=== PATIENT | male | born 1950 | race Caucasian/White ===

== ENCOUNTER → 2017-08-06 | Day surgery (SDC) | payer OTHER ==
[2017-07-24 10:55] VITALS: Ht 172.7 cm; Wt 67.3 kg
[~2017-08-06] VITALS: Ht 172.7 cm; Wt 67.3 kg
[~2017-08-06] MED LIST: ATOR-24 PO; HYG/25 PO; LIDOCAINE HCL 2% 2 ML VIAL (20MG/ML) ONE; PROPOFOL IV EMULSION 10 MG/ML 20 ML VIAL IV ONE; TIOT1AER2 INH; VNTHFA/IN INH
--- NOTE | 2017-08-06 14:55 | Endo History and Physical ---
History & Physical Date of Service: Aug 06, 2017. Chief Complaint: Tubular Adenoma Referring Physician: Essie History of Present Illness For colonoscopy Past Surgical History Hx Cardiac Surgery: No Hx Internal Defibrillator: No Hx Pacemaker: No Hx Abdominal Surgery: No Hx of Implantable Prosthesis: No Hx Post-Op Nausea and Vomiting: No Hx Cancer Surgery: No Hx Thoracic Surgery: No Hx Orthopedic: No Hx Urinary Tract Surgery: No Family History None Social History Smoking Status: Current Every Day Smoker Hx Substance Use: No Hx Alcohol Use: No Allergies Coded Allergies: No Known Allergies (Unverified , 07/24/17) Current Medications Reported Home Medications Medications Dose Route/Sig Max Daily Dose Days Date Category Spiriva Respimat (Tiotropium [place]) 1.25 Mcg/Act Aer 2 Puff INH QAM 07/24/17 Reported Ventolin Hfa (Albuterol) 200 Puffs/31973 Mcg Aers 2-4 Puffs INH Q6H PRN 07/24/17 Reported Lipitor (Atorvastatin Calcium) 40 Mg Tab 40 Mg PO QAM 07/24/17 Reported Hygroton (Chlorthalidone) 25 Mg Tab 25 Mg PO QAM 07/24/17 Reported Vital Signs Weight (Kilograms): 67.27 Height (Feet): 5 Height (Inches): 8 Date Time Temp Pulse Resp B/P (MAP) Pulse Ox O2 Delivery O2 Flow Rate FiO2 08/06/17 14:22 36.8 88 20 123/84 (97) 95 Room Air Physical Exam General Appearance: + thin Respiratory/Chest: Auscultation: deminished air movement Cardiovascular: Heart Auscultation: RRR Abdomen: Inspection & Palpation: soft Assessment and Plan Hx polyps for colonoscopy
--- NOTE | 2017-08-06 15:25 | Discharge Instructions ---
Endoscopy Patient Instructions Date / Procedure(s) Performed Aug 06, 2017. Colonoscopy Allergy Information Coded Allergies: No Known Allergies (Unverified , 07/24/17) Discharge Date / Findings Aug 06, 2017. Diverticulosis, hemorrhoids, polyp Medication Instructions Restart Stopped Medication(s): resume meds Reported Home Medications Medications Dose Route/Sig Max Daily Dose Days Date Category Spiriva Respimat (Tiotropium [place]) 1.25 Mcg/Act Aer 2 Puff INH QAM 07/24/17 Reported Ventolin Hfa (Albuterol) 200 Puffs/60615 Mcg Aers 2-4 Puffs INH Q6H PRN 07/24/17 Reported Lipitor (Atorvastatin Calcium) 40 Mg Tab 40 Mg PO QAM 07/24/17 Reported Hygro[place] (Chlorthalidone) 25 Mg Tab 25 Mg PO QAM 07/24/17 Reported Provider Instructions Activity Restrictions - No exercising or heavy lifting for 24 hours. - Do not drink alcohol the day of the procedure. - Do not drive a car or operate machinery until the day after the procedure. - Do not make any important decisions or sign important papers in 24 hours after the procedure. Following Day: - Return to full activity which may include returning to work/school. Diet Start your diet with liquids and light foods (jello, soup, juice, toast). Then eat your usual diet if not nauseated. Treatment For Common After Affects For mild abdominal pain, bloating, or excessive gas: - Rest - Eat lightly - Lie on right side Follow-Up Information Follow-up with Essie as scheduled Anesthesia Information What You Should Know You have had a procedure that required some medicine to reduce anxiety and discomfort. This treatment is called moderate sedation. After receiving the treatment, you may be sleepy, but you will be able to breathe on your own. The effects of the treatment may last for several hours. Follow these instructions along with Activity/Diet recommendations noted above: * Do NOT do anything where dizziness or clumsiness would be dangerous. * Rest quietly at home today, then you can be up and about tomorrow. * Have a responsible person stay with you the rest of today. * You may have had an I.V. today. If so, you may take the dressing off later today. Recommendations Call your doctor if: * Trouble breathing * Continuous vomiting for more than 24 hours * Temperature above 101 degrees * Severe abdominal pain or bloating * Pain not relieved by pain medicine ordered * There is increased drainage or redness from any incision * A large amount of rectal bleeding greater than 2-3 tablespoons. (If you had a polyp/s removed or have hemorrhoids, a small amount of blood - from the rectum is to be expected.) * You have any unanswered questions or concerns. IN THE EVENT OF A SERIOUS EMERGENCY, GO TO THE NEAREST EMERGENCY ROOM Your discharge instructions were prepared by provider Aleksandr Warren. Patient Instructions Signature Page Gregg Black Patient (or Guardian) Signature/Date: I have read and understand the instructions given to me by my caregivers. Caregiver/RN/Doctor Signature/Date: The above-named patient and/or guardian has received patient instructions on this date. + Original Patient Signature Page (only) stays with chart. Please make copy for patient.
--- NOTE | 2017-08-06 15:30 | GI REPORT ---
Procedure Date: 08/06/2017 3:09 PM Procedure: Colonoscopy Indications: Personal history of colonic polyps Medicines: Propofol total dose 120 mg IV, Lidocaine 40 mg IV Complications: No immediate complications. Estimated Blood Loss: Estimated blood loss was minimal. Procedure: Pre-Anesthesia Assessment: - Prior to the procedure, a History and Physical was performed, and patient medications, allergies and sensitivities were reviewed. The patient's tolerance of previous anesthesia was reviewed. - The risks and benefits of the procedure and the sedation options and risks were discussed with the patient. All questions were answered and informed consent was obtained. After I obtained informed consent, the scope was passed under direct vision. Throughout the procedure, the patient's blood pressure, pulse, and oxygen saturations were monitored continuously. The On-site loaner was introduced through the anus and advanced to the cecum, identified by appendiceal orifice and ileocecal valve. The colonoscopy was performed without difficulty. The patient tolerated the procedure well. The quality of the bowel preparation was excellent. Findings: Non-bleeding internal hemorrhoids were found during endoscopy. The hemorrhoids were mild. A few diverticula were found in the sigmoid colon. A 6 mm polyp was found in the sigmoid colon. The polyp was semi-pedunculated. The polyp was removed with a cold snare. Resection and retrieval were complete. Estimated blood loss was minimal. Impression: - Non-bleeding internal hemorrhoids. - Diverticulosis in the sigmoid colon. - One 6 mm polyp in the sigmoid colon, removed with a cold snare. Resected and retrieved. Recommendation: - Discharge patient to home (ambulatory). - Continue present medications. - Await pathology results. - Return to primary care physician PRN. Aleksandr Warren M.D. Aleksandr Warren MD 08/06/2017 3:30:18 PM This report has been signed electronically. Note Initiated On: 08/06/2017 3:09 PM I attest to the content of the Intraoperative Record and orders documented therein, exceptions below
--- NOTE | 2017-08-06 15:54 | Anesthesiology Progress Note ---
Anesthesia Post Op Note Date & Time Aug 06, 2017 at 15:53 Vital Signs Pain Intensity: 0 Vital Signs Past 12 Hours Date Time Temp Pulse Resp B/P (MAP) Pulse Ox O2 Delivery O2 Flow Rate FiO2 08/06/17 15:44 79 16 122/82 (95) 92 Room Air 08/06/17 15:29 84 14 102/66 (78) 94 Room Air 08/06/17 14:22 36.8 88 20 123/84 (97) 95 Room Air Notes Mental Status: alert / awake / arousable, participated in evaluation Pt Amnestic to Procedure: Yes Nausea / Vomiting: adequately controlled Pain: adequately controlled Airway Patency, RR, SpO2: stable & adequate BP & HR: stable & adequate Hydration State: stable & adequate Anesthetic Complications: no major complications apparent
[2017-08-06 15:59] VITALS: BP 123/89; PULSE 72; O2SAT 94
== END | disposition home or self-care (01) ==
LOC: C.GI 13:37
PROVIDERS: ATTEND Internal Medicine Gastroenterology
DX: Z12.11 Encounter for screening for malignant neoplasm of colon (principal); D12.5 Benign neoplasm of sigmoid colon; Z86.010 Personal history of colon polyps; K57.30 Diverticulosis of large intestine without perforation or abscess without bleeding; K64.8 Other hemorrhoids; F17.200 Nicotine dependence, unspecified, uncomplicated; J44.9 Chronic obstructive pulmonary disease, unspecified; I10 Essential (primary) hypertension; E78.5 Hyperlipidemia, unspecified

== ENCOUNTER 2020-11-24 07:07 | Inpatient (IN) ==
[2020-11-24] MEDS ORDERED: ALBUT/IPRATROP 3MG/0.5MG NEB 3 ML VIAL INH STA (07:15)
[2020-11-24] MEDS ORDERED: methylPREDNISolone 125 MG/2 ML VIAL IV STA (07:15)
--- NOTE | 2020-11-24 07:18 | Emergency Department Note ---
Impression & Plan Acute respiratory failure with hypoxia, COPD (chronic obstructive pulmonary disease) with emphysema ED Provider Note NAME: BRUCE PALM AGE: 70 SEX: M : 1950 ARRIVES VIA: Ambulance INFORMANT: Patient, EMS ED PROVIDER(S): Js Dunn MD CHIEF COMPLAINT: Shortness of breath HPI: This 70-year-old male who presents emergency department complaining of shortness of breath. The patient reports he has been quitting smoking and quit approxi-1 week ago. The patient reports he has been short of breath anytime he exerts himself. He called EMS today when he could not catch his breath. EMS reports they placed the patient on 2 L of oxygen and gave him a breathing treatment. He reports rest makes the shortness of breath better ROS: See above HPI for pertinent positives & negatives. A total of 10 systems reviewed and were otherwise negative. PAST MEDICAL HISTORY: See Below PAST SURGICAL HISTORY: See Below FAMILY HISTORY: See Below SOCIAL HISTORY: See Below HOME MEDICATIONS: See Below ALLERGIES: See Below VITALS: See Below PHYSICAL EXAMINATION: VITAL SIGNS - Vital signs and nursing notes were reviewed. GENERAL - 70-year-old male appearing stated age who is in no acute distress. Communicates well with provider and answers questions appropriately. SKIN - Without rashes. HEAD - NC/AT. EYES - PERRL with EOMI bilaterally. Sclera anicteric. Palpebral conjunctiva pink and moist with no injection noted. EARS - No deformities of external structures noted on gross examination bilaterally. NOSE - Midline and without cyanosis. No epistaxis or purulent drainage noted. Septum midline without deviation or septal hematoma noted. MOUTH/OROPHARYNX - Without perioral cyanosis. Buccal mucosa pink and moist and without leukoplakia. Tongue midline with equal elevation of palate bilaterally. No tonsillar hypertrophy, erythema, or exudates noted. NECK - Neck with FROM. Supple to palpation. No nuchal rigidity. LUNGS - Chest wall symmetric without accessory muscle use, intercostals retractions, or central cyanosis. Normal vesicular breath sounds CTA B/L. No whe ezes, rales, or rhonchi appreciated. CARDIAC - RRR with S1/S2. No murmur, rubs, or gallops appreciated. ABDOMEN - Abdominal contour BS normoactive all four quadrants. No tenderness, palpable masses, hepatosplenomegaly, or ascites noted. EXTREMITIES - No clubbing or peripheral cyanosis. No pretibial edema present. +3/5 radial, posterior tibial, and dorsalis pedis pulses palpated throughout. +5/5 strength noted in UE/LE bilaterally. NEUROLOGIC - Cranial nerves II through XII grossly intact. Sensory intact to light touch throughout. Patellar reflexes +2/4. PSYCH - A&Ox3 and cooperates fully with examiner. Pt is very pleasant and interacts well with examiner. MEDICAL DECISION MAKING: Patient was seen and evaluated as above in room. Review was performed of nursing notes and vital signs. I did review pertinent previous visits and patient history. After obtaining a thorough history and physical examination the above work up was performed. This 70-year-old male with a history of COPD presents to the emergency department with hypoxia. Patient was placed on oxygen by EMS. Here in the emergency department patient was started on Solu-Medrol and given breathing treatments. Because the patient continues to require oxygen I did discuss the case with the hospitalist service who did agree to admit the patient. I will note that the patient does not have an elevation in his white blood cell count has a negative Covid test and a negative troponin. An order was placed for continuous cardiac monitoring. The monitor shows a rate of 63 with Normal inus rhythm. The patient was evaluated during a period of high volume and high acuity during the global COVID-19 pandemic, and that diagnosis was suspected/considered upon their initial presentation. Their evaluation, treatment and testing was consistent with current guidelines for patients who present with complaints or s ymptoms that may be related to COVID-19. Patient was seen while provider was wearing PPE. Triage Nursing notes reviewed. Prior medical records reviewed Vital Signs: reviewed and remarkable for no significant abnormalities Differential diagnosis: Reactive airway disease, pneumonia, pneumothorax, COPD, CHF, infections, cardiac ischemia, pulmonary embolism, musculoskeletal, gastrointestinal, as well as other pathologies. ER treatment provided: See below Diagnostics interpreted by me: ECG: Sinus tachycardia with premature atrial complex right atrial enlargement QTC is 491 ventricular rate is [address] elevation or depression when compared with EKG of 02/16/2012 premature atrial complexes are now present Laboratory studies: As stated above and show below. Imaging studies: See below Consultation(s): Internal Medicine Past Med/Surg History Medical History COPD (chronic obstructive pulmonary disease) with emphysema HTN (hypertension) Hypercholesterolemia Pneumonia Surgical History History of foot surgery Social History Smoking Status: Current every day smoker Tobacco Type: Cigarettes Cigarettes Per Day: 1/2 pack; Do You Dip or Chew Tobacco: No; Hx Alcohol Use: No Hx Substance Use: No Preferred Language: Ecuadorean Communication Ability: Effective Mine Inspector Required: No Beliefs That Will Affect Care: None Current Living Situation: Alone Other Information That Helps Us Care for You: No Feels Safe at Home: Yes Safety Concerns: Feels Safe At This Time Assistive Devices: None Allergies Allergies Allergy/AdvReac Type Severity Reaction Status Date / Time No Known Allergies Allergy Unverified 11/24/20 07:42 Home Meds Home Medications Medication Instructions Recorded Confirmed albuterol sulfate 2 puff INHALATION Q4H PRN 11/24/20 11/24/20 atorvastatin 40 mg PO QAM 11/24/20 11/24/20 chlorthalidone 25 mg PO QAM 11/24/20 11/24/20 tiotropium bromide [Spiriva 1 inh INHALATION DAILY 11/24/20 11/24/20 Respimat] Results & Data (ED) Vital Signs Vital Signs - 24 hr 11/24/20 07:07 11/24/20 07:17 11/24/20 07:19 Temperature 37 C Temperature Source Oral Pulse Rate 122 H 109 H 110 H Pulse Rate [Apical] Pulse Rate from SpO2 Sensor 109 H 107 H Pulse Rhythm Regular Pulse Strength Normal Respiratory Rate 24 29 H 19 Respiratory Effort / Characteristics Spontaneous Short of Breath Respiratory Depth Shallow Respiratory Pattern Rapid/Shallow Blood Pressure 164/101 H 164/101 H Blood Pressure Mean 122 122 Blood Pressure Position Sitting Pulse Oximetry 97 98 99 Oxygen Delivery Method Nasal Cannula Oxygen Flow Rate 2 Sepsis Recent Fever Within 48 Hours No Sepsis New/Unexplained Change in Mental Status No Sepsis Action Taken by Nursing Physician Notified Oxygen Flow Rate - Titration 2 Pulse Oximetry Post Tiitration 98 11/24/20 07:30 11/24/20 07:32 11/24/20 07:45 Temperature Temperature Source Pulse Rate 110 H 106 H 106 H Pulse Rate [Apical] Pulse Rate from SpO2 Sensor 108 H 107 H Pulse Rhythm Regular Pulse Strength Respiratory Rate 20 31 H 33 H Respiratory Effort / Characteristics Respiratory Depth Respiratory Pattern Blood Pressure Blood Pressure Mean Blood Pressure Position Pulse Oximetry 99 98 96 Oxygen Delivery Method Nasal Cannula Oxygen Flow Rate 2 Sepsis Recent Fever Within 48 Hours Sepsis New/Unexplained Change in Mental Status Sepsis Action Taken by Nursing Oxygen Flow Rate - Titration Pulse Oximetry Post Tiitration 11/24/20 07:46 11/24/20 08:00 11/24/20 08:07 Temperature Temperature Source Pulse Rate 107 H 113 H Pulse Rate [Apical] 108 H Pulse Rate from SpO2 Sensor 105 H 103 H Pulse Rhythm Pulse Strength Respiratory Rate 23 14 20 Respiratory Effort / Characteristics Spontaneous Short of Breath Respiratory Depth Respiratory Pattern Blood Pressure 148/80 H 128/85 Blood Pressure Mean 102 99 Blood Pressure Position Pulse Oximetry 98 99 96 Oxygen Delivery Method Nasal Cannula Oxygen Flow Rate 2 Sepsis Recent Fever Within 48 Hours Sepsis New/Unexplained Change in Mental Status Sepsis Action Taken by Nursing Oxygen Flow Rate - Titration Pulse Oximetry Post Tiitration 11/24/20 08:15 11/24/20 08:30 11/24/20 08:31 Temperature Temperature Source Pulse Rate 104 H 104 H 102 H Pulse Rate [Apical] Pulse Rate from SpO2 Sensor 106 H 100 H 103 H Pulse Rhythm Pulse Strength Respiratory Rate 24 15 22 Respiratory Effort / Characteristics Spontaneous Labored Retracting Short of Breath Tripoding Respiratory Depth Respiratory Pattern Blood Pressure 114/75 136/85 Blood Pressure Mean 88 102 Blood Pressure Position Pulse Oximetry 97 99 99 Oxygen Delivery Method Nasal Cannula Oxygen Flow Rate 2 Sepsis Recent Fever Within 48 Hours Sepsis New/Unexplained Change in Mental Status Sepsis Action Taken by Nursing Oxygen Flow Rate - Titration Pulse Oximetry Post Tiitration 11/24/20 08:45 11/24/20 08:46 11/24/20 09:00 Temperature Temperature Source Pulse Rate 105 H 103 H 101 H Pulse Rate [Apical] Pulse Rate from SpO2 Sensor 89 93 H 94 H Pulse Rhythm Pulse Strength Respiratory Rate 35 H 29 H 24 Respiratory Effort / Characteristics Respiratory Depth Respiratory Pattern Blood Pressure 120/75 110/74 Blood Pressure Mean 90 86 Blood Pressure Position Pulse Oximetry 93 99 92 Oxygen Delivery Method Oxygen Flow Rate Sepsis Recent Fever Within 48 Hours Sepsis New/Unexplained Change in Mental Status Sepsis Action Taken by Nursing Oxygen Flow Rate - Titration Pulse Oximetry Post Tiitration 11/24/20 09:14 11/24/20 09:15 Temperature Temperature Source Pulse Rate 104 H Pulse Rate [Apical] 106 H Pulse Rate from SpO2 Sensor 85 Pulse Rhythm Pulse Strength Respiratory Rate 22 21 Respiratory Effort / Characteristics Spontaneous Short of Breath Respiratory Depth Respiratory Pattern Blood Pressure 132/80 Blood Pressure Mean 97 Blood Pressure Position Pulse Oximetry 96 89 L Oxygen Delivery Method Nasal Cannula Oxygen Flow Rate 2 Sepsis Recent Fever Within 48 Hours Sepsis New/Unexplained Change in Mental Status Sepsis Action Taken by Nursing Oxygen Flow Rate - Titration Pulse Oximetry Post Tiitration Home Medications Current Medication List: was personally reviewed by me Laboratory Data Attestation: I reviewed the patient's lab results. Result diagrams: 11/27/20 05:31 11/27/20 05:31 Lab Results 11/24/20 11/24/20 11/24/20 Range/Units 07:31 07:31 07:32 WBC 18.62 H (4.8-10.8) K/uL RBC 4.78 (4.7-6.1) M/uL Hgb 15.1 (14.0-18.0) g/dL Hct 42.7 (42-52) % MCV 89.3 (80-100) fL MCH 31.6 (25-34) pg MCHC 35.4 (32-36) g/dL RDW Std Deviation 43.0 (36.4-46.3) fL RDW Coeff of Latrice 13.1 (11.5-14.5) % Plt Count 333 (130-400) K/uL MPV 10.1 (7.4-10.4) fL Immature Gran % (Auto) 0.4 % Neut % (Auto) 87.9 % Lymph % (Auto) 3.9 % Boyd % (Auto) 7.7 % Eos % (Auto) 0.0 % Baso % (Auto) 0.1 % Neut # (Auto) 16.38 H (1.4-6.5) K/uL Lymph # (Auto) 0.72 L (1.2-3.4) K/uL Boyd # (Auto) 1.43 H (0.11-0.59) K/uL Eos # (Auto) 0.00 (0-0.5) K/uL Baso # (Auto) 0.01 (0-0.2) K/uL Immature Gran # (Auto) 0.08 H (0.00-0.02) K/uL Absolute Nucleated RBC 0.00 (0-0) K/uL Nucleated RBC % (auto) 0.0 % PT 10.6 (9.0-12.0) Seconds INR 1.0 (0.9-1.1) APTT 23.6 (21.0-31.0) Seconds PTT Ratio 0.9 Sodium 132 L (136-145) mmol/L Potassium 3.4 L (3.5-5.1) mmol/L Chloride 89 L (98-107) mmol/L Carbon Dioxide 33 H (21-32) mmol/L Anion Gap 10.0 (3-11) BUN 26 H (7-18) mg/dl Creatinine 1.10 (0.6-1.4) mg/dl Est Cr Clr Drug Dosing Not Reportable Est GFR ( Amer) 79.5 ml/min Est GFR (Non-Af Amer) 68.6 ml/min BUN/Creatinine Ratio 23.5 H (10-20) Glucose 105 H (70-99) mg/dl Lactate (0.4-2.0) mmol/L Calcium 10.2 H (8.5-10.1) mg/dl Magnesium (1.8-2.4) mg/dl Total Bilirubin 0.7 (0.2-1) mg/dl AST 62 H (15-37) U/L ALT 37 (12-78) U/L Alkaline Phosphatase 91 (45-117) U/L Troponin I (0-0.045) ng/ml NT-Pro-B Natriuret Pep (0-900) pg/ml Total Protein 8.0 (6.4-8.2) gm/dl Albumin 3.6 (3.4-5.0) gm/dl Globulin 4.4 H (2.5-4.0) gm/dl Albumin/Globulin Ratio 0.8 L (0.9-2) COVID-19 Eval Order SARS-CoV-2 (PCR) (Negative) 11/24/20 11/24/20 11/24/20 Range/Units 07:32 08:02 08:02 WBC (4.8-10.8) K/uL RBC (4.7-6.1) M/uL Hgb (14.0-18.0) g/dL Hct (42-52) % MCV (80-100) fL MCH (25-34) pg MCHC (32-36) g/dL RDW Std Deviation (36.4-46.3) fL RDW Coeff of Latrice (11.5-14.5) % Plt Count (130-400) K/uL MPV (7.4-10.4) fL Immature Gran % (Auto) % Neut % (Auto) % Lymph % (Auto) % Boyd % (Auto) % Eos % (Auto) % Baso % (Auto) % Neut # (Auto) (1.4-6.5) K/uL Lymph # (Auto) (1.2-3.4) K/uL Boyd # (Auto) (0.11-0.59) K/uL Eos # (Auto) (0-0.5) K/uL Baso # (Auto) (0-0.2) K/uL Immature Gran # (Auto) (0.00-0.02) K/uL Absolute Nucleated RBC (0-0) K/uL Nucleated RBC % (auto) % PT (9.0-12.0) Seconds INR (0.9-1.1) APTT (21.0-31.0) Seconds PTT Ratio Sodium (136-145) mmol/L Potassium (3.5-5.1) mmol/L Chloride (98-107) mmol/L Carbon Dioxide (21-32) mmol/L Anion Gap (3-11) BUN (7-18) mg/dl Creatinine (0.6-1.4) mg/dl Est Cr Clr Drug Dosing Est GFR ( Amer) ml/min Est GFR (Non-Af Amer) ml/min BUN/Creatinine Ratio (10-20) Glucose (70-99) mg/dl Lactate (0.4-2.0) mmol/L Calcium (8.5-10.1) mg/dl Magnesium 1.7 L (1.8-2.4) mg/dl Total Bilirubin (0.2-1) mg/dl AST (15-37) U/L ALT (12-78) U/L Alkaline Phosphatase (45-117) U/L Troponin I < 0.015 (0-0.045) ng/ml NT-Pro-B Natriuret Pep 742 (0-900) pg/ml Total Protein (6.4-8.2) gm/dl Albumin (3.4-5.0) gm/dl Globulin (2.5-4.0) gm/dl Albumin/Globulin Ratio (0.9-2) COVID-19 Eval Order Covid19 at [facility] SARS-CoV-2 (PCR) NEGATIVE (Negative) 11/24/20 Range/Units 08:40 WBC (4.8-10.8) K/uL RBC (4.7-6.1) M/uL Hgb (14.0-18.0) g/dL Hct (42-52) % MCV (80-100) fL MCH (25-34) pg MCHC (32-36) g/dL RDW Std Deviation (36.4-46.3) fL RDW Coeff of Latrice (11.5-14.5) % Plt Count (130-400) K/uL MPV (7.4-10.4) fL Immature Gran % (Auto) % Neut % (Auto) % Lymph % (Auto) % Boyd % (Auto) % Eos % (Auto) % Baso % (Auto) % Neut # (Auto) (1.4-6.5) K/uL Lymph # (Auto) (1.2-3.4) K/uL Boyd # (Auto) (0.11-0.59) K/uL Eos # (Auto) (0-0.5) K/uL Baso # (Auto) (0-0.2) K/uL Immature Gran # (Auto) (0.00-0.02) K/uL Absolute Nucleated RBC (0-0) K/uL Nucleated RBC % (auto) % PT (9.0-12.0) Seconds INR (0.9-1.1) APTT (21.0-31.0) Seconds PTT Ratio Sodium (136-145) mmol/L Potassium (3.5-5.1) mmol/L Chloride (98-107) mmol/L Carbon Dioxide (21-32) mmol/L Anion Gap (3-11) BUN (7-18) mg/dl Creatinine (0.6-1.4) mg/dl Est Cr Clr Drug Dosing Est GFR ( Amer) ml/min Est GFR (Non-Af Amer) ml/min BUN/Creatinine Ratio (10-20) Glucose (70-99) mg/dl Lactate 2.1 H* (0.4-2.0) mmol/L Calcium (8.5-10.1) mg/dl Magnesium (1.8-2.4) mg/dl Total Bilirubin (0.2-1) mg/dl AST (15-37) U/L ALT (12-78) U/L Alkaline Phosphatase (45-117) U/L Troponin I (0-0.045) ng/ml NT-Pro-B Natriuret Pep (0-900) pg/ml Total Protein (6.4-8.2) gm/dl Albumin (3.4-5.0) gm/dl Globulin (2.5-4.0) gm/dl Albumin/Globulin Ratio (0.9-2) COVID-19 Eval Order SARS-CoV-2 (PCR) (Negative) Administered Medications Al Hydrox/Mg Hydrox/Simethicone (Aluminum/Magnesium Susp 30 Ml Udc) 15 ml PO Q4H PRN PRN Reason: Dyspepsia Stop: 12/24/20 11:40 Last Admin: 11/25/20 03:39 Dose: 15 ml Documented by: [id number] Albuterol (Albut/Ipratrop 3mg/0.5mg Neb 3 Ml Vial) 3 ml NEB Q4R YESY Stop: 12/24/20 11:40 Last Admin: 11/27/20 11:13 Dose: 3 ml Documented by: [id number] Admin: 11/27/20 07:39 Dose: 3 ml Documented by: [id number] Admin: 11/27/20 03:43 Dose: Not Given Documented by: [id number] Admin: 11/26/20 22:34 Dose: Not Given Documented by: [id number] Admin: 11/26/20 18:55 Dose: 3 ml Documented by: [id number] Admin: 11/26/20 15:04 Dose: 3 ml Documented by: [id number] Admin: 11/26/20 11:14 Dose: 3 ml Documented by: [id number] Admin: 11/26/20 07:13 Dose: 3 ml Documented by: [id number] Admin: 11/26/20 03:08 Dose: 3 ml Documented by: [id number] Admin: 11/26/20 02:30 Dose: Not Given Documented by: [id number] Admin: 11/25/20 23:04 Dose: 3 ml Documented by: [id number] Admin: 11/25/20 18:45 Dose: Not Given Documented by: [id number] Admin: 11/25/20 15:42 Dose: 3 ml Documented by: [id number] Admin: 11/25/20 11:22 Dose: 3 ml Documented by: [id number] Admin: 11/25/20 07:41 Dose: 3 ml Documented by: [id number] Admin: 11/25/20 03:14 Dose: 3 ml Documented by: [id number] Admin: 11/24/20 22:56 Dose: 3 ml Documented by: [id number] Admin: 11/24/20 19:32 Dose: 3 ml Documented by: [id number] Admin: 11/24/20 15:33 Dose: Not Given Documented by: [id number] Admin: 11/24/20 13:04 Dose: 3 ml Documented by: [id number] Atorvastatin Calcium (Atorvastatin 40 Mg Tab) 40 mg PO [facility] Stop: 12/24/20 11:40 Last Admin: 11/27/20 08:43 Dose: 40 mg Documented by: [id number] Admin: 11/26/20 08:30 Dose: 40 mg Documented by: [id number] Admin: 11/25/20 09:02 Dose: 40 mg Documented by: [id number] Admin: 11/24/20 13:30 Dose: 40 mg Documented by: [id number] Azithromycin (Azithromycin 250 Mg Tab) 250 mg PO [facility] Stop: 11/29/20 08:59 Last Admin: 11/27/20 08:43 Dose: 250 mg Documented by: [id number] Admin: 11/26/20 08:30 Dose: 250 mg Documented by: [id number] Admin: 11/25/20 09:02 Dose: 250 mg Documented by: [id number] Calcium Carbonate (Calcium Carbonate 500 Mg Chewable Tab) 500 mg PO QID PRN PRN Reason: Indigestion Stop: 12/24/20 15:36 Last Admin: 11/25/20 18:13 Dose: 500 mg Documented by: [id number] Admin: 11/24/20 15:49 Dose: 500 mg Documented by: [id number] Chlorthalidone (Chlorthalidone 25 Mg Tab) 25 mg PO [facility] Stop: 12/24/20 11:40 Last Admin: 11/27/20 08:43 Dose: 25 mg Documented by: [id number] Admin: 11/26/20 08:31 Dose: Not Given Documented by: [id number] Admin: 11/25/20 10:45 Dose: 25 mg Documented by: [id number] Admin: 11/24/20 13:30 Dose: 25 mg Documented by: [id number] Fluticasone/Vilanterol (Fluticasone/Vilanterol 100/25mcg 14 Puffs/Inhaler) 1 puffs INH DAILY YESY Stop: 12/25/20 08:59 Last Admin: 11/27/20 08:42 Dose: 1 puffs Documented by: [id number] Admin: 11/26/20 08:32 Dose: 1 puffs Documented by: [id number] Admin: 11/25/20 09:02 Dose: 1 puffs Documented by: [id number] Guaifenesin (Guaifenesin 600 Mg Tabcr) 600 mg PO Q12 YESY Stop: 12/24/20 20:59 Last Admin: 11/27/20 08:43 Dose: 600 mg Documented by: [id number] Admin: 11/26/20 20:45 Dose: 600 mg Documented by: [id number] Admin: 11/26/20 08:32 Dose: 600 mg Documented by: [id number] Admin: 11/25/20 20:44 Dose: 600 mg Documented by: [id number] Admin: 11/25/20 09:01 Dose: 600 mg Documented by: [id number] Admin: 11/24/20 21:07 Dose: 600 mg Documented by: [id number] Heparin Sodium (Porcine) (Heparin Sod 5,000 Unit/0.5 Ml Vial) 5,000 units SQ Q12 YESY Stop: 12/24/20 20:59 Last Admin: 11/27/20 08:43 Dose: 5,000 units Documented by: [id number] Admin: 11/26/20 20:45 Dose: 5,000 units Documented by: [id number] Admin: 11/26/20 08:32 Dose: 5,000 units Documented by: [id number] Admin: 11/25/20 20:44 Dose: 5,000 units Documented by: [id number] Admin: 11/25/20 09:02 Dose: 5,000 units Documented by: [id number] Admin: 11/24/20 20:36 Dose: 5,000 units Documented by: [id number] Magnesium Hydroxide (Magnesium Hydroxide Susp 30 Ml Udc) 30 ml PO Q12H PRN PRN Reason: Constipation Stop: 12/24/20 11:40 Last Admin: 11/25/20 06:11 Dose: 30 ml Documented by: [id number] Umeclidinium Ceres (Umeclidinium Ceres 62.5mcg/Blister 7 Puffs/Inhaler) 1 puffs INH DAILY YESY; Protocol Stop: 12/24/20 12:29 Last Admin: 11/27/20 08:42 Dose: 1 puffs Documented by: [id number] Admin: 11/26/20 08:32 Dose: 1 puffs Documented by: [id number] Admin: 11/25/20 09:04 Dose: 1 puffs Documented by: [id number] Admin: 11/24/20 13:30 Dose: 1 puffs Documented by: [id number] Discontinued Medications Albuterol (Albut/Ipratrop 3mg/0.5mg Neb 3 Ml Vial) 3 ml INH NOW STA Stop: 11/24/20 07:16 Last Admin: 11/24/20 08:05 Dose: 3 ml Documented by: [id number] Albuterol (Albut/Ipratrop 3mg/0.5mg Neb 3 Ml Vial) 12 ml NEB ONE ONE Stop: 11/24/20 08:33 Last Admin: 11/24/20 09:14 Dose: 12 ml Documented by: [id number] Famotidine (Famotidine 10 Mg Tablet) 10 mg PO NOW ONE Stop: 11/25/20 06:39 Last Admin: 11/25/20 06:54 Dose: 10 mg Documented by: [id number] Azithromycin 500 mg/ Dextrose 255 mls @ 125 mls/hr IV ONE ONE Stop: 11/24/20 10:24 Last Infusion: 11/24/20 11:22 Dose: 0 mls/hr Documented by: [id number] Admin: 11/24/20 09:07 Dose: 125 mls/hr Documented by: [id number] Ceftriaxone Sodium 2,000 mg/ (Dextrose) 70 mls @ 100 mls/hr IV Q24H YESY; Protocol Stop: 12/01/20 12:29 Last Infusion: 11/25/20 14:01 Dose: 0 mls/hr Documented by: [id number] Admin: 11/25/20 13:16 Dose: 100 mls/hr Documented by: [id number] Infusion: 11/24/20 14:35 Dose: 0 mls/hr Documented by: [id number] Admin: 11/24/20 13:29 Dose: 100 mls/hr Documented by: [id number] Methylprednisolone 40 mg/ (Syringe) 0.64 mls @ 1.5 mls/min IV BID YESY Stop: 12/25/20 20:59 Last Admin: 11/27/20 08:42 Dose: 1.5 mls/min Documented by: [id number] Admin: 11/26/20 20:45 Dose: 1.5 mls/min Documented by: [id number] Admin: 11/26/20 08:32 Dose: 1.5 mls/min Documented by: [id number] Admin: 11/25/20 20:43 Dose: 1.5 mls/min Documented by: [id number] Methylprednisolone (Methylprednisolone 125 Mg/2 Ml Vial) 125 mg IV NOW STA Stop: 11/24/20 07:16 Last Admin: 11/24/20 07:43 Dose: 125 mg Documented by: [id number] Potassium Chloride (Potassium Chloride Crtab 20 Meq Tabcr) 40 meq PO NOW STA Stop: 11/24/20 08:18 Last Admin: 11/24/20 09:08 Dose: 40 meq Documented by: [id number] Potassium Chloride (Potassium Chloride Crtab 20 Meq Tabcr) 40 meq PO BID YESY Stop: 11/25/20 21:01 Last Admin: 11/25/20 20:44 Dose: 40 meq Documented by: [id number] Admin: 11/25/20 16:21 Dose: 40 meq Documented by: [id number] Prednisone (Prednisone 20 Mg Tab) 40 mg PO QAM YESY Stop: 12/25/20 08:59 Last Admin: 11/25/20 09:02 Dose: 40 mg Documented by: [id number] Imaging Data Attestation: I personally reviewed and interpreted this imaging study as follows: Radiologist's Impression: Chest X-Ray 11/24/20 07:15 XR chest 1V portable HISTORY: 70 years-old Male Dyspnea acute shortness of breath COMPARISON: Chest radiograph and chest CT 02/16/2012 TECHNIQUE: Portable AP view of the chest FINDINGS: The cardiomediastinal and hilar silhouettes are within normal limits. Emphysema with hyperinflation. The patient is slightly rotated towards the left. No pneumothorax, pleural effusion or overt pulmonary edema. Mild subsegmental ill- defined left lung base nodular airspace opacities. The bones of the chest appear grossly intact. IMPRESSION: Mild subsegmental left lung base opacities are suspicious for an infectious or inflammatory pneumonitis. Follow-up recommended. ACT 112: Negative or not required by law. The above report was generated using voice recognition software. It may contain grammatical, syntax or spelling errors. Electronically signed by: Silvano Rodriges M.D. 11/24/2020 8:19 AM Discharge Plan Visit Data Chief Complaint: Shortness of Breath/Dyspnea Stated Complaint: BREATHING DIFFICULTY ED Provider: Js Dunn ED Midlevel Provider: Jj Jha Discharge Problem: Acute respiratory failure with hypoxia, COPD (chronic obstructive pulmonary disease) with emphysema Patient Disposition: Admitted As Inpatient Discharge Instructions Interventions: ED Discharge Assessment Last Done: 11/24/20 11:13 Discharge Problem: COPD (chronic obstructive pulmonary disease) with emphysema Qualifiers: Emphysema type: unspecified Qualified Code(s): J43.9 - Emphysema, unspecified
--- NOTE | 2020-11-24 07:23 | Communication Note ---
Date of Service: November 24, 2020 I examined and provided care for this patient in conjunction with Dr. Dunn, and agree with the assessment and plan as indicated in his separate document ation. Resident Activity Tracking Resident Involvement: Resident Care Provided Care Provided: Adult ED
[2020-11-24 07:52] LABS: Basophils # (auto) 0.01 K/uL (0-0.2); Basophils % (auto) 0.1 %; Hematocrit (blood only) 42.7 % (42-52); Hemoglobin 15.1 g/dL (14.0-18.0); Immature Granulocytes # (auto) 0.08 K/uL (0.00-0.02); Immature Granulocytes % (auto) 0.4 %; Lymphocytes # (auto) 0.72 K/uL (1.2-3.4); Lymphocytes % (auto) 3.9 %; Mean Corpuscular Hemoglobin 31.6 pg (25-34); Mean Corpuscular Hgb Conc 35.4 g/dL (32-36); Mean Corpuscular Volume 89.3 fL (80-100); Mean Platelet Volume 10.1 fL (7.4-10.4); Monocytes # (auto) 1.43 K/uL (0.11-0.59); Monocytes % (auto) 7.7 %; Neutrophils # (auto) 16.38 K/uL (1.4-6.5); Neutrophils % (auto) 87.9 %; Platelet Count 333 K/uL (130-400); RDW Coefficient of Variation 13.1 % (11.5-14.5); Red Blood Count 4.78 M/uL (4.7-6.1); White Blood Count 18.62 K/uL (4.8-10.8)
[2020-11-24 08:04] LABS: Alanine Aminotransferase 37 U/L (12-78); Albumin Level 3.6 gm/dl (3.4-5.0); Aspartate Aminotransferase 62 U/L (15-37); BUN Creatinine Ratio 23.5 (10-20); Blood Urea Nitrogen 26 mg/dl (7-18); Calcium 10.2 mg/dl (8.5-10.1); Carbon Dioxide 33 mmol/L (21-32); Chloride 89 mmol/L (98-107); Est GFR (African American) 79.5 ml/min; Est GFR (Non-African American) 68.6 ml/min; Glucose 105 mg/dl (70-99); Potassium 3.4 mmol/L (3.5-5.1); Sodium 132 mmol/L (136-145)
[2020-11-24 08:07] LABS: Albumin Globulin Ratio 0.8 (0.9-2); Alkaline Phosphatase 91 U/L (45-117); Bilirubin,Total 0.7 mg/dl (0.2-1); Globulin 4.4 gm/dl (2.5-4.0)
[2020-11-24] MEDS ORDERED: POTASSIUM CHLORIDE CRTAB 20 MEQ TABCR PO STA (08:17)
--- NOTE | 2020-11-24 08:20 | XRay Report ---
XR chest 1V portable HISTORY: 70 years-old Male Dyspnea acute shortness of breath COMPARISON: Chest radiograph and chest CT 02/16/2012 TECHNIQUE: Portable AP view of the chest FINDINGS: The cardiomediastinal and hilar silhouettes are within normal limits. Emphysema with hyperinflation. The patient is slightly rotated towards the left. No pneumothorax, pleural effusion or overt pulmonar y edema. Mild subsegmental ill-defined left lung base nodular airspace opacities. The bones of the ch est appear grossly intact. IMPRESSION: Mild subsegmental left lung base opacities are suspicious for an infectious or inflammato ry pneumonitis. Follow-up recommended. ACT 112: Negative or not required by law. The above report was generated using voice recognition software. It may contain grammatical, syntax o r spelling errors. Electronically signed by: Silvano Rodriges M.D. 11/24/2020 8:19 AM
[2020-11-24] MEDS ORDERED: AZITHROMYCIN 500 MG in DEXTROSE 5% 250 ML IV ONE (08:22)
[2020-11-24] MEDS ORDERED: ALBUT/IPRATROP 3MG/0.5MG NEB 3 ML VIAL NEB ONE (08:32)
[2020-11-24 08:38] LABS: Magnesium 1.7 mg/dl (1.8-2.4); NT Pro B Type Natriuretic Pept 742 pg/ml (0-900); Partial Thromboplastin Ratio 0.9; Partial Thromboplastin Time 23.6 Seconds (21.0-31.0); Prothrombin Time 10.6 Seconds (9.0-12.0); Troponin I < 0.015 ng/ml (0-0.045)
--- NOTE | 2020-11-24 09:24 | History & Physical Report ---
Date of Service November 24, 2020 Assessment & Plan (1) COPD exacerbation: 2. Continue supplemental O2 to maintain SpO2 = or > 94% 3. Prednisone 40 mg PO daily 4. Continue DuoNeb nebulizers q.4 hours around the clock. 5. Continue Spiriva and Albuterol. 6. IV Rocephin 1000 mg every 24 hours. 7. IV Azithromycin 500 mg given in the ER, will continue a IV Azithromycin 250 mg daily as of tomorrow. 8. Strongly encourage smoking cessation. 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 (2) COPD (chronic obstructive pulmonary disease) with emphysema: -- Manage as outlined above. (3) HTN (hypertension): Patient's blood pressure was initially elevated, however it has come down and is reasonably well controlled. -- Continue Chlorthalidone 25 mg daily. -- Monitor daily BMP. (4) Hypercholesterolemia: - Continue atorvastatin (5) DVT prophylaxis: Heparin 5,000 units SQ Q12h History of Present Illness Chief Complaint: -- Shortness of Breath. -- COPD Exacerbation. Primary Care Provider: Jm Soares Mr. Black is a 70 year old male with a history of Hypertension, Hypercholesterolemia, and COPD/Emphysema who presents acutely to [facility] ER this morning complaining of increased shortness of breath, dyspnea on exertion, wheezing, and a nonproductive cough which began about 3-4 days ago, and each day it has gotten worse. Patient has been using his inhalers, but they are not providing any relief. Patient offers no other complaints. He denies any fevers, chills, chest pain, chest heaviness, pleuritic chest pain, or any hemoptysis. He has not had any sputum production. Patient denies any headache, stiff neck, myalgias, arthralgias, or malaise. He has not had exposure to any sick contacts. He denies any recent COVID exposures. Patient has never been hospitalized for COPD in the past, but he was hospitalized for pneumonia in the past. Patient does not use or require supplemental oxygen at home. Patient denies any prior cardiac history. He specifically denies any history CAD, ID, CHF, rheumatic fever, or cardiac arrhythmias. He denies any history of stroke or mini stroke. He denies any intermittent claudication. Allergies Allergy/AdvReac Type Severity Reaction Status Date / Time No Known Allergies Allergy Unverified 11/24/20 07:42 Home Medications Medication Instructions Recorded Confirmed Type albuterol sulfate 2 puff INHALATION Q4H PRN 11/24/20 11/24/20 History atorvastatin 40 mg PO QAM 11/24/20 11/24/20 History chlorthalidone 25 mg PO QAM 11/24/20 11/24/20 History tiotropium bromide [Spiriva 1 inh INHALATION DAILY 11/24/20 11/24/20 History Respimat] Past Med/Surg History Medical History COPD (chronic obstructive pulmonary disease) with emphysema HTN (hypertension) Hypercholesterolemia Pneumonia Surgical History History of foot surgery Social History Smoking Status: Current every day smoker Tobacco Type: Cigarettes Cigarettes Per Day: 1/2 pack; Do You Dip or Chew Tobacco: No; Hx Alcohol Use: No Hx Substance Use: No Preferred Language: Vietnamese Communication Ability: Effective Loss Prevention Manager Required: No Beliefs That Will Affect Care: None Current Living Situation: Alone Other Information That Helps Us Care for You: No Feels Safe at Home: Yes Safety Concerns: Feels Safe At This Time Assistive Devices: None Review of Systems Review of Systems: All systems reviewed & are unremarkable except as noted in Subjective Physical Exam Physical Exam: GENERAL: Patient is in no acute distress, currently receiving a nebulizer treatment. HEENT: Head is atraumatic, normocephalic. EOM's intact. Facies symmetric. No perioral cyanosis. NECK: No JVD. JVP is not elevated. Carotid upstrokes are + 2 bilaterally. No bruits are noted. CHEST/LUNGS: Increased A:P diameter. Diminished breath sounds throughout with scattered expiratory wheezes. No crackles or rales. Decreased diaphragmatic excursion. CVS: S1 and S2 are regular, tachycardic without obvious murmurs, gallops, or rubs. Heart sounds are best auscultated in the mid epigastrium. PMI is displaced to the midepigastrium. No lifts, heaves, or thrills. No abdominal aortic or renal bruits. ABDOMINAL EXAM: Bowel sounds are present. No masses, organomegaly, or tenderness. EXTREMITIES: No clubbing or cyanosis. No edema. Intact radial pulses bilaterally. Diminished but palpable posterior tibial arteries bilaterally. NEUROLOGIC EXAM: Patient is awake, alert, and oriented. Pleasant and coope rative. Answers questions appropriately. Speech is clear. Normal movement in all 4 extremities. Gait pattern was not assessed. BILINGUAL MEDICAL RECEPTIONIST: -- Sinus tachycardia at 106 bpm with occasional PAC's. EKG 11/24/20: -- Sinus tachycardia at 112 bpm with a premature atrial contraction. -- Right atrial enlargement based on peaked P wave in lead II. -- RSR' complex in V1, without QRS widening. -- When compared to EKG 02/16/2012: A single PAC is now present. Results & Data Results & Data ([facility]) Vital Signs (Past 12 Hours) Vital Signs Temp Pulse Pulse Resp BP Pulse Ox 11/24/20 08:31 102 H 22 99 11/24/20 08:30 104 H 15 136/85 99 11/24/20 08:15 104 H 24 114/75 97 11/24/20 08:07 108 H 20 96 11/24/20 08:00 113 H 14 128/85 99 11/24/20 07:46 107 H 23 148/80 H 98 11/24/20 07:45 106 H 33 H 96 11/24/20 07:32 106 H 31 H 98 11/24/20 07:30 110 H 20 99 11/24/20 07:19 110 H 19 99 11/24/20 07:17 109 H 29 H 164/101 H 98 11/24/20 07:07 37 C 122 H 24 164/101 H 97 Laboratory Results Laboratory Results - last 24 hr 11/24/20 11/24/20 11/24/20 07:31 07:31 07:32 WBC 18.62 H RBC 4.78 Hgb 15.1 Hct 42.7 MCV 89.3 MCH 31.6 MCHC 35.4 RDW Std Deviation 43.0 RDW Coeff of Latrice 13.1 Plt Count 333 MPV 10.1 Immature Gran % (Auto) 0.4 Neut % (Auto) 87.9 Lymph % (Auto) 3.9 [place] % (Auto) 7.7 Eos % (Auto) 0.0 Baso % (Auto) 0.1 Neut # (Auto) 16.38 H Lymph # (Auto) 0.72 L [place] # (Auto) 1.43 H Eos # (Auto) 0.00 Baso # (Auto) 0.01 Immature Gran # (Auto) 0.08 H Absolute Nucleated RBC 0.00 Nucleated RBC % (auto) 0.0 PT 10.6 INR 1.0 APTT 23.6 PTT Ratio 0.9 Sodium 132 L Potassium 3.4 L Chloride 89 L Carbon Dioxide 33 H Anion Gap 10.0 BUN 26 H Creatinine 1.10 Est Cr Clr Drug Dosing Not Reportable Est GFR ( Amer) 79.5 Est GFR (Non-Af Amer) 68.6 BUN/Creatinine Ratio 23.5 H Glucose 105 H Lactate Calcium 10.2 H Magnesium Total Bilirubin 0.7 AST 62 H ALT 37 Alkaline Phosphatase 91 Troponin I NT-Pro-B Natriuret Pep Total Protein 8.0 Albumin 3.6 Globulin 4.4 H Albumin/Globulin Ratio 0.8 L COVID-19 Eval Order SARS-CoV-2 (PCR) 11/24/20 11/24/20 11/24/20 07:32 08:02 08:02 WBC RBC Hgb Hct MCV MCH MCHC RDW Std Deviation RDW Coeff of Latrice Plt Count MPV Immature Gran % (Auto) Neut % (Auto) Lymph % (Auto) [place] % (Auto) Eos % (Auto) Baso % (Auto) Neut # (Auto) Lymph # (Auto) [place] # (Auto) Eos # (Auto) Baso # (Auto) Immature Gran # (Auto) Absolute Nucleated RBC Nucleated RBC % (auto) PT INR APTT PTT Ratio Sodium Potassium Chloride Carbon Dioxide Anion Gap BUN Creatinine Est Cr Clr Drug Dosing Est GFR ( Amer) Est GFR (Non-Af Amer) BUN/Creatinine Ratio Glucose Lactate Calcium Magnesium 1.7 L Total Bilirubin AST ALT Alkaline Phosphatase Troponin I < 0.015 NT-Pro-B Natriuret Pep 742 Total Protein Albumin Globulin Albumin/Globulin Ratio COVID-19 Eval Order Covid19 at [facility] SARS-CoV-2 (PCR) NEGATIVE 11/24/20 08:40 WBC RBC Hgb Hct MCV MCH MCHC RDW Std Deviation RDW Coeff of Latrice Plt Count MPV Immature Gran % (Auto) Neut % (Auto) Lymph % (Auto) [place] % (Auto) Eos % (Auto) Baso % (Auto) Neut # (Auto) Lymph # (Auto) [place] # (Auto) Eos # (Auto) Baso # (Auto) Immature Gran # (Auto) Absolute Nucleated RBC Nucleated RBC % (auto) PT INR APTT PTT Ratio Sodium Potassium Chloride Carbon Dioxide Anion Gap BUN Creatinine Est Cr Clr Drug Dosing Est GFR ( Amer) Est GFR (Non-Af Amer) BUN/Creatinine Ratio Glucose Lactate Pending Calcium Magnesium Total Bilirubin AST ALT Alkaline Phosphatase Troponin I NT-Pro-B Natriuret Pep Total Protein Albumin Globulin Albumin/Globulin Ratio COVID-19 Eval Order SARS-CoV-2 (PCR) Diagnostic Findings PORTABLE CXR 11/24/20: The cardiomediastinal and hilar silhouettes are within normal limits. Emphysema with hyperinflation. The patient is slightly rotated towards the left. No pneumothorax, pleural effusion or overt pulmonary edema. Mild subsegmental ill- defined left lung base nodular airspace opacities. The bones of the chest appear grossly intact. IMPRESSION: -- Mild subsegmental left lung base opacities are suspicious for an infectious or inflammatory pneumonitis. -- Follow-up recommended. Medications Administered Medications albuterol sulfate 2 puff INHALATION Q4H PRN 11/24/20 [History Confirmed 11/24/20] atorvastatin 40 mg PO QAM 11/24/20 [History Confirmed 11/24/20] chlorthalidone 25 mg PO QAM 11/24/20 [History Confirmed 11/24/20] tiotropium bromide [Spiriva Respimat] 1 inh INHALATION DAILY 11/24/20 [History Confirmed 11/24/20] Home Medications Azithromycin 500 mg/ Dextrose 255 mls @ 125 mls/hr IV ONE ONE Stop: 11/24/20 10:24 Last Admin: 11/24/20 09:07 Dose: 125 mls/hr Documented by: Code Status & VTE Plan Code Status Full Code VTE Prophylaxis Plan VTE Prophylaxis will be ordered: Yes Supervising Physician Co-Signing Physician Notes I supervised Soy Burton PA-C on this admission. I interviewed and examined the patient independently of him. The plan is as written in the PA's note except for any following changes/exceptions: None Doing better when seen this afternoon. Not as much wheezing, but still with some labored breathing. Will treat as per PA's note. PG Care Time/CCT Total # of Minutes Spent Total Time Spent with Patient: Total time spent is greater than 50% in coordination of care (as documented) at patient's floor/unit and/or counseling patient:40 Coding Level of Care Code 29459 Initial Inpt Care Lvl 3 Diagnoses COPD exacerbation J44.1 COPD (chronic obstructive pulmonary disease) with emphysema J43.9 HTN (hypertension) I10 Hypercholesterolemia E78.00 DVT prophylaxis Z29.9 Time Spent (min) 60
[2020-11-24] MEDS ORDERED: ONDANSETRON INJ 2 MG/ML 2 ML VIAL IV PRN (11:41)
[2020-11-24] MEDS ORDERED: NITROGLYCERIN SL 0.4 MG/TAB TAB SL PRN (11:41)
[2020-11-24] MEDS ORDERED: ZOLPIDEM TARTRATE 5 MG TAB PO PRN (11:41)
[2020-11-24] MEDS ORDERED: methylPREDNISolone 125 MG/2 ML VIAL IV SCH (11:41)
[2020-11-24] MEDS ORDERED: ALBUTEROL HFA 8 GM INHALER INH PRN (11:41)
[2020-11-24] MEDS ORDERED: POLYETHYLENE (MIRALAX) 17 GM PACK PO PRN (11:41)
[2020-11-24] MEDS ORDERED: MAGNESIUM HYDROXIDE SUSP 30 ML UDC PO PRN (11:41)
[2020-11-24] MEDS ORDERED: ACETAMINOPHEN 325 MG TAB PO PRN (11:41)
[2020-11-24] MEDS: ALBUT/IPRATROP 3MG/0.5MG NEB 3 ML VIAL NEB SCH ×4 (13:04→22:56)
[2020-11-24] MEDS: cefTRIAXone SODIUM 2,000 MG in DEXTROSE 5% 50 ML IV SCH (13:29)
[2020-11-24] MEDS: ATORVASTATIN 40 MG TAB PO SCH (13:30)
[2020-11-24] MEDS: UMECLIDINIUM BROMIDE 62.5MCG/BLISTER 7 PUFFS/INHALER INH SCH (13:30)
[2020-11-24] MEDS: CHLORTHALIDONE 25 MG TAB PO SCH (13:30)
--- NOTE | 2020-11-24 13:32 | Electrocardiogram Report ---
Test Reason : Blood Pressure : / mmHG Vent. Rate : 112 BPM Atrial Rate : 112 BPM P-R Int : 132 ms QRS Dur : 090 ms QT Int : 360 ms P-R-T Axes : 090 089 069 degrees QTc Int : 491 ms Poor data quality, interpretation may be adversely affected Sinus tachycardia with Premature atrial complexes Right atrial enlargement Borderline ECG When compared with ECG of 16-FEB-2012 10:35, Premature atrial complexes are now Present Confirmed by Cleveland Parkinson ([id number]) on 11/24/2020 1:31:40 PM Referred By: ED Confirmed By:Cleveland Parkinson
[2020-11-24] MEDS: CALCIUM CARBONATE 500 MG CHEWABLE TAB PO PRN (15:49)
--- NOTE | 2020-11-24 17:27 | Pulmonary Consultation ---
Date of Consultation November 24, 2020 Assessment & Plan (1) COPD (chronic obstructive pulmonary disease) with emphysema: CT chest 2020 personally reviewed: Severe centrilobular and seems to be pa nlobular emphysema in the lower lobes. Inferior lingular infiltrate versus mucous plugging No mediastinal lymphadenopathy --Acute hypoxic respiratory failure Likely secondary to COPD exacerbation COVID-19 PCR negative 11/21/2020 Continue with prednisone Continue with antibiotic with atypical coverage with azithromycin O2 supplementation to keep oxygen saturation between 88-92% --Severe COPD with emphysema Patient is only on Spiriva at home Recommend starting the patient on Trelegy inhaler. For addition of Symbicort versus Breo to Spiriva before discharge Patient will benefit from PFTs as well as pulmonary follow-up as an outpatient Given the severity of emphysema and will order alpha-1 level Addition of azithromycin or Roflumilast can be thought of as an outpatient Patient will definitely benefit from pulmonary rehab as well. --Active smoker Importance of quitting explained to the patient Plan: Continue with prednisone. Add Breo to Incruse. For the mucous plugging which is appreciated in the inferior lobe of the lingula, start the patient on guaifenesin and flutter valve Please note the above document was generated using voice recognition software. It may contain grammatical, syntax or spelling errors.Any formal questions or concerns about the content, text or information contained within the body of this dictation should be directly addressed to the provider for clarification. (2) COPD exacerbation: (3) Acute respiratory failure with hypoxia: (4) Current smoker: History of Present Illness Attending Physician: David Pelletier MD History of Present Illness 70-year-old male past medical history of hypertension, dyslipidemia COPD presented to the hospital with complaints of worsening shortness of breath going on since approximately a week. Pulmonary consulted for the same At the time of examination patient states that he has been having issues with breathing for quite a long time and has been getting progressively worse since a week or so. Patient has cough he is able to bring it up but is usually yellow in color. Denies any hemoptysis. Sometimes he has a feeling that he is not able to bring up any phlegm. Denies any chest pain. No fever or chills. No headache, no nausea, no vomiting. No dizziness, no dysuria, no diarrhea. Denies any recent travel history. Social history: Greater than [id number] smoking history, denies any illicit drug use, social alcohol. No exposure to any chemicals or fumes at work Pets: None Allergies: Denies Asthma: No personal or family history of asthma Lung cancer: History of lung cancer in the mother was a smoker Allergies Allergy/AdvReac Type Severity Reaction Status Date / Time No Known Allergies Allergy Unverified 11/24/20 07:42 Home Medications Medication Instructions Recorded Confirmed Type albuterol sulfate 2 puff INHALATION Q4H PRN 11/24/20 11/24/20 History atorvastatin 40 mg PO QAM 11/24/20 11/24/20 History chlorthalidone 25 mg PO QAM 11/24/20 11/24/20 History tiotropium bromide [Spiriva 1 inh INHALATION DAILY 11/24/20 11/24/20 History Respimat] Patient History Medical History COPD (chronic obstructive pulmonary disease) with emphysema HTN (hypertension) Hypercholesterolemia Pneumonia Surgical History History of foot surgery Social History Smoking Status: Current every day smoker Tobacco Type: Cigarettes Cigarettes Per Day: 1/2 pack; Do You Dip or Chew Tobacco: No; Hx Alcohol Use: No Hx Substance Use: No Preferred Language: Japanese Communication Ability: Effective Millwork Estimator Required: No Beliefs That Will Affect Care: None Current Living Situation: Alone Other Information That Helps Us Care for You: No Feels Safe at Home: Yes Safety Concerns: Feels Safe At This Time Assistive Devices: None Review of Systems Review of Systems: All systems reviewed & are unremarkable except as noted in HPI & below Physical Exam Physical Exam: Constitutional: No acute distress, frail-appearing HEENT: EOMI, PERRLA Respiratory system: Decreased air entry bilaterally, no rhonchi, no crackles, positive mild expiratory wheeze bilaterally CVS: S1-S2 positive, no murmurs or gallops, distant heart sounds Abdomen: Soft, nontender, nondistended, positive bowel sounds x4 Extremities: +2 pulses bilaterally radialis/ dorsalis pedis, no cyanosis, no edema Neuro: Awake alert oriented x3 Psych: Normal mood and affect G/U: No Haines Skin: no rashes, warm and dry Lymphatic: no cervical or axillary lymphadenopathy Results & Data Results & Data ([facility]) Vital Signs (Past 12 Hours) Vital Signs Temp Pulse Pulse Pulse Resp BP BP 11/24/20 15:02 36.6 C 106 H 18 122/81 11/24/20 13:55 113 H 11/24/20 13:04 113 H 20 11/24/20 11:36 36.5 C 104 H 24 148/81 H 11/24/20 11:13 37 C 111 H 27 H 120/74 11/24/20 11:01 111 H 27 H 120/74 11/24/20 11:00 116 H 28 H 120/74 11/24/20 10:46 112 H 28 H 121/72 11/24/20 10:45 115 H 19 11/24/20 10:31 124 H 28 H 163/106 H 11/24/20 10:30 123 H 27 H 163/106 H 11/24/20 10:16 118 H 31 H 139/96 11/24/20 10:15 110 H 25 H 11/24/20 10:00 109 H 26 H 140/79 11/24/20 09:45 117 H 21 11/24/20 09:30 108 H 22 126/83 11/24/20 09:15 104 H 21 132/80 11/24/20 09:14 106 H 22 11/24/20 09:00 101 H 24 110/74 11/24/20 08:46 103 H 29 H 120/75 11/24/20 08:45 105 H 35 H 11/24/20 08:31 102 H 22 11/24/20 08:30 104 H 15 136/85 11/24/20 08:15 104 H 24 114/75 11/24/20 08:07 108 H 20 11/24/20 08:00 113 H 14 128/85 11/24/20 07:46 107 H 23 148/80 H 11/24/20 07:45 106 H 33 H 11/24/20 07:32 106 H 31 H 11/24/20 07:30 110 H 20 11/24/20 07:19 110 H 19 11/24/20 07:17 109 H 29 H 164/101 H 11/24/20 07:07 37 C 122 H 24 164/101 H Pulse Ox 06/23/21 15:02 94 11/24/20 13:55 11/24/20 13:04 95 11/24/20 11:36 96 11/24/20 11:13 100 11/24/20 11:01 100 11/24/20 11:00 100 11/24/20 10:46 100 11/24/20 10:45 94 11/24/20 10:31 90 11/24/20 10:30 97 11/24/20 10:16 100 11/24/20 10:15 90 11/24/20 10:00 100 11/24/20 09:45 97 11/24/20 09:30 100 11/24/20 09:15 89 L 11/24/20 09:14 96 11/24/20 09:00 92 11/24/20 08:46 99 11/24/20 08:45 93 11/24/20 08:31 99 11/24/20 08:30 99 11/24/20 08:15 97 11/24/20 08:07 96 11/24/20 08:00 99 11/24/20 07:46 98 11/24/20 07:45 96 11/24/20 07:32 98 11/24/20 07:30 99 11/24/20 07:19 99 11/24/20 07:17 98 11/24/20 07:07 97 11/24/20 07:31 11/24/20 07:31 PG Care Time/CCT Total # of Minutes Spent Total Time Spent with Patient: Total time spent is greater than 50% in coordination of care (as documented) at patient's floor/unit and/or counseling patient: Coding Level of Care Code 92895 Initial Inpt Care Lvl 3 Diagnoses COPD (chronic obstructive pulmonary disease) with emphysema J43.9 COPD exacerbation J44.1 Acute respiratory failure with hypoxia J96.01 Current smoker F17.200
[2020-11-24] MEDS: HEPARIN SOD 5,000 UNIT/0.5 ML VIAL SQ SCH (20:36)
[2020-11-24] MEDS ORDERED: methylPREDNISolone 60 MG in SYRINGE 0 ML IV SCH (21:00)
[2020-11-24] MEDS: guaiFENesin 600 MG TABCR PO SCH (21:07)
[2020-11-25] MEDS: ALBUT/IPRATROP 3MG/0.5MG NEB 3 ML VIAL NEB SCH ×6 (03:14→23:04)
[2020-11-25] MEDS: ALUMINUM/MAGNESIUM SUSP 30 ML UDC PO PRN (03:39)
[2020-11-25] MEDS ORDERED: FAMOTIDINE 10 MG TABLET PO ONE (06:38)
[2020-11-25 07:23] LABS: Basophils # (auto) 0.02 K/uL (0-0.2); Basophils % (auto) 0.1 %; Hematocrit (blood only) 40.5 % (42-52); Hemoglobin 14.2 g/dL (14.0-18.0); Immature Granulocytes # (auto) 0.03 K/uL (0.00-0.02); Immature Granulocytes % (auto) 0.2 %; Lymphocytes # (auto) 1.38 K/uL (1.2-3.4); Mean Corpuscular Hemoglobin 31.5 pg (25-34); Mean Corpuscular Hgb Conc 35.1 g/dL (32-36); Mean Corpuscular Volume 89.8 fL (80-100); Monocytes # (auto) 0.78 K/uL (0.11-0.59); Monocytes % (auto) 4.5 %; Neutrophils # (auto) 15.05 K/uL (1.4-6.5); Neutrophils % (auto) 87.2 %; Platelet Count 322 K/uL (130-400); RDW Coefficient of Variation 13.1 % (11.5-14.5); RDW Standard Deviation 43.3 fL (36.4-46.3); Red Blood Count 4.51 M/uL (4.7-6.1); White Blood Count 17.26 K/uL (4.8-10.8)
[2020-11-25 07:55] LABS: BUN Creatinine Ratio 35.3 (10-20); Calcium 10.3 mg/dl (8.5-10.1); Creatinine Clr Calc Pharmacy 43.9 ml/min; Est GFR (African American) 79.5 ml/min; Est GFR (Non-African American) 68.6 ml/min; Magnesium 1.9 mg/dl (1.8-2.4)
[2020-11-25] MEDS ORDERED: predniSONE 20 MG TAB PO SCH (09:00)
[2020-11-25] MEDS ORDERED: AZITHROMYCIN 250 MG in DEXTROSE 5% 250 ML IV SCH (09:00)
[2020-11-25] MEDS: guaiFENesin 600 MG TABCR PO SCH ×2 (09:01→20:44)
[2020-11-25] MEDS: ATORVASTATIN 40 MG TAB PO SCH (09:02)
[2020-11-25] MEDS: HEPARIN SOD 5,000 UNIT/0.5 ML VIAL SQ SCH ×2 (09:02→20:44)
[2020-11-25] MEDS: FLUTICASONE/VILANTEROL 100/25MCG 14 PUFFS/INHALER INH SCH (09:02)
[2020-11-25] MEDS: AZITHROMYCIN 250 MG TAB PO SCH (09:02)
[2020-11-25] MEDS: UMECLIDINIUM BROMIDE 62.5MCG/BLISTER 7 PUFFS/INHALER INH SCH (09:04)
--- NOTE | 2020-11-25 09:13 | CT Scan Report ---
CT chest diagnostic wo con CLINICAL HISTORY: COPD/emphysema COMPARISON STUDY: February 16, 2012 CT DOSE: 245.76 mGy.cm TECHNIQUE: CT of the thorax was performed from the thoracic inlet to the lung bases. Images are revi ewed in the axial, sagittal, and coronal planes. IV contrast was not administered for this examinatio n. A dose lowering technique was utilized adhering to the principles of ALARA. FINDINGS: There is no axillary, supra clavicle or internal mammary lymphadenopathy seen. Evaluation is slightly limited due to cachexia and motion artifact. No mediastinal lymphadenopathy seen. Thyroid: Thyroid gland is not well seen. Esophagus is patulous. Mild hiatal hernia is seen. Thoracic aorta: Is normal in caliber with scattered calcifications of its wall. Pulmonary artery is slightly enlarged measuring 3.0 cm in diameter which could be seen in pulmonary h ypertension. Heart: Is slightly decreased in size and shows trace pericardial effusion. Heavy coronary calcificati ons are seen. Lungs and pleural spaces: Tracheobronchial tree is patent. Severe centrilobular emphysema is seen throughout bilateral lungs. Cluster of tree-in-bud opacities are seen within lingula, was not seen on prior study in 2012. No pleural effusion is seen. -5 mm nodule is seen within left lower lobe (4/217) which was not seen on prior. Another small nodule is marked in PACs on series 4. Few areas of endobronchial plugging and peribronchial cuffing are see n. Evaluation is slightly limited due to motion artifact. Upper abdomen: Gaseous distention of the bowel loops are seen within upper abdomen. Focal gas filled loop of bowel i s seen within the right upper quadrant and probably dilated. Evaluation is limited due to cachexia an d motion artifact. Skeletal structures: Mild degenerative changes of the spine. Hemangiomas are seen within the vertebra l bodies. IMPRESSION: 1. Hyperinflation and emphysema. 2. Tree-in-bud opacities are seen within lingula, was not seen on prior study in 2012 and could repr esent infectious/inflammatory etiology. Short-term follow-up in 4-6 weeks is recommended to document resolution. 3. Small pulmonary nodules are marked in PACs on series 4 might also represent infectious/inflammato ry etiology and could also be reevaluated on short-term follow-up exam. 4. Mild dilatation of the main pulmonary artery which could be seen in pulmonary hypertension. 5. Hiatal hernia. 6. Possible gaseous dilatation of the visualized bowel loops. Evaluation is limited due to cachexia and motion artifact. Follow-up evaluation with [facility] is recommended. ACT 112: Positive. There are findings on this exam that require communication between the performing entity and the patient following Patient Test Result Information Act ([place] Act 112) guidelines. The above report was generated using voice recognition software. It may contain grammatical, syntax o r spelling errors. Electronically signed by: Josette Persaud DO 11/25/2020 9:12 AM
[2020-11-25] MEDS: CHLORTHALIDONE 25 MG TAB PO SCH (10:45)
--- NOTE | 2020-11-25 13:03 | Pulmonology Progress Note ---
Date of Service November 25, 2020 Assessment & Plan (1) COPD (chronic obstructive pulmonary disease) with emphysema: CT chest 2020 personally reviewed: Severe centrilobular and seems to be panlob ular emphysema in the lower lobes. Inferior lingular infiltrate versus mucous plugging No mediastinal lymphadenopathy --Acute hypoxic respiratory failure Likely secondary to COPD exacerbation COVID-19 PCR negative 11/21/2020 Continue with prednisone Continue with antibiotic with atypical coverage with azithromycin O2 supplementation to keep oxygen saturation between 88-92% --Severe COPD with emphysema Patient is only on Spiriva at home Recommend starting the patient on Trelegy inhaler. For addition of Symbicort versus Breo to Spiriva before discharge Patient will benefit from PFTs as well as pulmonary follow-up as an outpatient Given the severity of emphysema and will order alpha-1 level Addition of azithromycin or Roflumilast can be thought of as an outpatient Patient will definitely benefit from pulmonary rehab as well. --Active smoker Importance of quitting explained to the patient Plan: Given the persistent wheezing I will change the prednisone to Solu-Medrol instead twice daily and gradually titrate down to p.o. Continue with guaifenesin with flutter valve. Please note the above document was generated using voice recognition software. It may contain grammatical, syntax or spelling errors.Any formal questions or concerns about the content, text or information contained within the body of this dictation should be directly addressed to the provider for clarification. (2) COPD exacerbation: (3) Acute respiratory failure with hypoxia: (4) Current smoker: Admission and Anticipated Discharge Date Admission Date: November 24, 2020 Subjective Patient seen and examined at bedside. No acute distress, no adverse events over night. Patient states that he is feeling better compared to coming to the hospital. Still gets short of breath on exertion. Denies any chest pain, no chest tightness. Is able to bring up phlegm after using a flutter valve. No headache, no blurry vision. No hemoptysis. Review of Systems Review of Systems: All systems reviewed & are unremarkable except as noted in Subjective Physical Exam Physical Exam: Constitutional: No acute distress, frail-appearing HEENT: EOMI, PERRLA Respiratory system: Decreased air entry bilaterally, no rhonchi, no crackles, positive mild expiratory wheeze bilaterally CVS: S1-S2 positive, no murmurs or gallops, distant heart sounds Abdomen: Soft, nontender, nondistended, positive bowel sounds x4 Extremities: +2 pulses bilaterally radialis/ dorsalis pedis, no cyanosis, no edema Neuro: Awake alert oriented x3 Psych: Normal mood and affect G/U: No Haines Skin: no rashes, warm and dry Lymphatic: no cervical or axillary lymphadenopathy Results & Data Results & Data ([facility]) Vital Signs (Past 12 Hours) Vital Signs Temp Pulse Pulse Pulse Resp BP Pulse Ox 11/25/20 11:33 36.5 C 94 H 19 130/73 97 11/25/20 11:22 89 18 96 11/25/20 07:41 87 18 97 11/25/20 07:36 97 H 11/25/20 07:29 36.5 C 81 19 130/82 20 L 11/25/20 03:50 36.7 C 102 H 20 135/99 98 11/25/20 03:15 59 L 19 99 11/25/20 07:03 11/25/20 07:03 PG Care Time/CCT Total # of Minutes Spent Total Time Spent with Patient: Total time spent is greater than 50% in coordination of care (as documented) at patient's floor/unit and/or counseling patient: Coding Level of Care Code 91593 Subseq Hosp Care Lvl 3 Diagnoses COPD (chronic obstructive pulmonary disease) with emphysema J43.9 COPD exacerbation J44.1 Acute respiratory failure with hypoxia J96.01 Current smoker F17.200
[2020-11-25] MEDS: cefTRIAXone SODIUM 2,000 MG in DEXTROSE 5% 50 ML IV SCH (13:16)
--- NOTE | 2020-11-25 14:35 | Hospitalist Progress Note ---
Date of Service November 25, 2020 Assessment & Plan (1) COPD exacerbation: 2. Continue supplemental O2 to maintain SpO2 = or > 94% 3. Prednisone 40 mg PO daily 4. Continue DuoNeb nebulizers q.4 hours around the clock. 5. Continue Spiriva and Albuterol. 7. IV Azithromycin 500 mg given in the ER, will continue a IV Azithromycin 250 mg daily as of tomorrow. 8. Strongly encourage smoking cessation. - Pulm consult given he does not have an outpatient cobol mainframe developer -> discussed today. Added triple-therapy inhaler and can give coupon on discharge. Stop ceftriaxone. (2) COPD (chronic obstructive pulmonary disease) with emphysema: -- Manage as outlined above. (3) HTN (hypertension): Patient's blood pressure was initially elevated, however it has come down and is reasonably well controlled. BP 130/75 today. -- Continue Chlorthalidone 25 mg daily. -- Monitor daily BMP. (4) Hypercholesterolemia: - Continue atorvastatin (5) DVT prophylaxis: Heparin 5,000 units SQ Q12h Admission and Anticipated Discharge Date Admission Date: November 24, 2020 Subjective Doing some better today. Still gets shortness of breath with moving to bathroom. Reports no fevers/chills, chest pain, abdominal pain, nausea, or vomiting. Physical Exam Constitutional: WD/WN, vitals as above Eyes: EOM intact bilaterally; no conjunctival abnormality ENMT: external ear and nose normal, oropharynx normal Neck: trachea midline, no thyromegaly normal visual inspection Respiratory: + labored breathing and + prolonged expiratory phase; no respiratory distress Auscultation: + wheezes (Diffuse, end expiratory) Cardiovascular: RRR, no murmur, no edema Gastrointestinal (Abdomen): Inspection/Auscultation: abdomen normal to inspection; abdomen not distended Musculoskeletal: no cyanosis or clubbing, extremities motor strength 5/5 Skin: no rashes, warm and dry Neurologic: moves all extremities and awake Psychiatric: Orientation: alert, oriented to person and cooperative Results & Data Results & Data ([facility]) Vital Signs (Past 12 Hours) Vital Signs Temp Pulse Pulse Pulse Resp BP Pulse Ox 11/25/20 11:33 36.5 C 94 H 19 130/73 97 11/25/20 11:22 89 18 96 11/25/20 07:41 87 18 97 06/24/21 07:36 97 H 11/25/20 07:29 36.5 C 81 19 130/82 20 L 11/25/20 03:50 36.7 C 102 H 20 135/99 98 11/25/20 03:15 59 L 19 99 PG Care Time/CCT Total # of Minutes Spent Total Time Spent with Patient: Total time spent is greater than 50% in coordination of care (as documented) at patient's floor/unit and/or counseling patient: Coding Level of Care Code 43783 Subseq Hosp Care Lvl 3 Diagnoses COPD exacerbation J44.1 COPD (chronic obstructive pulmonary disease) with emphysema J43.9 HTN (hypertension) I10 Hypercholesterolemia E78.00 DVT prophylaxis Z29.9
[2020-11-25] MEDS: POTASSIUM CHLORIDE CRTAB 20 MEQ TABCR PO SCH ×2 (16:21→20:44)
[2020-11-25] MEDS: CALCIUM CARBONATE 500 MG CHEWABLE TAB PO PRN (18:13)
[2020-11-25] MEDS: methylPREDNISolone 40 MG in SYRINGE 0 ML IV SCH (20:43)
[2020-11-26] MEDS: ALBUT/IPRATROP 3MG/0.5MG NEB 3 ML VIAL NEB SCH ×7 (02:30→22:34)
--- NOTE | 2020-11-26 05:55 | Electrocardiogram Report ---
Test Reason : Blood Pressure : / mmHG Vent. Rate : 100 BPM Atrial Rate : 100 BPM P-R Int : 152 ms QRS Dur : 080 ms QT Int : 352 ms P-R-T Axes : 087 090 083 degrees QTc Int : 454 ms Normal sinus rhythm Right atrial enlargement Rightward axis Abnormal ECG When compared with ECG of 24-NOV-2020 07:16, Premature atrial complexes are no longer Present T wave amplitude has decreased in Anterolateral leads Confirmed by Pedro Pack ([id number] on 11/26/2020 5:55:22 AM Referred By: REFERRED SELF Confirmed By:Pedro Pack
[2020-11-26 08:28] LABS: Basophils # (auto) 0.01 K/uL (0-0.2); Basophils % (auto) 0.1 %; Hemoglobin 12.8 g/dL (14.0-18.0); Immature Granulocytes # (auto) 0.04 K/uL (0.00-0.02); Immature Granulocytes % (auto) 0.2 %; Lymphocytes # (auto) 1.26 K/uL (1.2-3.4); Lymphocytes % (auto) 7.1 %; Mean Corpuscular Hemoglobin 31.2 pg (25-34); Mean Corpuscular Hgb Conc 34.6 g/dL (32-36); Mean Corpuscular Volume 90.2 fL (80-100); Mean Platelet Volume 9.8 fL (7.4-10.4); Monocytes # (auto) 0.47 K/uL (0.11-0.59); Monocytes % (auto) 2.7 %; Neutrophils # (auto) 15.94 K/uL (1.4-6.5); Neutrophils % (auto) 89.9 %; Platelet Count 305 K/uL (130-400); RDW Coefficient of Variation 13.2 % (11.5-14.5); RDW Standard Deviation 43.7 fL (36.4-46.3); White Blood Count 17.72 K/uL (4.8-10.8)
[2020-11-26] MEDS: AZITHROMYCIN 250 MG TAB PO SCH (08:30)
[2020-11-26] MEDS: ATORVASTATIN 40 MG TAB PO SCH (08:30)
[2020-11-26] MEDS: CHLORTHALIDONE 25 MG TAB PO SCH (08:31)
[2020-11-26] MEDS: UMECLIDINIUM BROMIDE 62.5MCG/BLISTER 7 PUFFS/INHALER INH SCH (08:32)
[2020-11-26] MEDS: guaiFENesin 600 MG TABCR PO SCH ×2 (08:32→20:45)
[2020-11-26] MEDS: HEPARIN SOD 5,000 UNIT/0.5 ML VIAL SQ SCH ×2 (08:32→20:45)
[2020-11-26] MEDS: FLUTICASONE/VILANTEROL 100/25MCG 14 PUFFS/INHALER INH SCH (08:32)
[2020-11-26] MEDS: methylPREDNISolone 40 MG in SYRINGE 0 ML IV SCH ×2 (08:32→20:45)
[2020-11-26 08:58] LABS: BUN Creatinine Ratio 37.1 (10-20); Calcium 9.8 mg/dl (8.5-10.1); Creatinine Clr Calc Pharmacy 56.9 ml/min; Est GFR (African American) 103.8 ml/min; Est GFR (Non-African American) 89.5 ml/min; Potassium 4.3 mmol/L (3.5-5.1)
--- NOTE | 2020-11-26 11:18 | Pulmonology Progress Note ---
Date of Service November 26, 2020 Assessment & Plan (1) COPD (chronic obstructive pulmonary disease) with emphysema: CT chest 11/24/2020 personally reviewed: Severe centrilobular and seems to be p anlobular emphysema in the lower lobes. Inferior lingular infiltrate versus mucous plugging No mediastinal lymphadenopathy --Acute hypoxic respiratory failure Likely secondary to COPD exacerbation COVID-19 PCR negative 11/21/2020 Continue with prednisone Continue with antibiotic with atypical coverage with azithromycin O2 supplementation to keep oxygen saturation between 88-92% --Severe COPD with emphysema Patient is only on Spiriva at home Recommend starting the patient on Trelegy inhaler. For addition of Symbicort versus Breo to Spiriva before discharge Patient will benefit from PFTs as well as pulmonary follow-up as an outpatient Given the severity of emphysema and will order alpha-1 level Addition of azithromycin or Roflumilast can be thought of as an outpatient Patient will definitely benefit from pulmonary rehab as well. --Active smoker Importance of quitting explained to the patient Plan: No wheezing appreciated on physical exam today. Would continue with Solu-Medrol for maybe 24 hours more and then change it to prednisone 40 mg p.o. for 3 days followed by 20 mg for 2 days Continue with guaifenesin with flutter valve. I think patient is going to benefit from rehab given the severe deconditioning from underlying severe COPD. Please note the above document was generated using voice recognition software. It may contain grammatical, syntax or spelling errors.Any formal questions or concerns about the content, text or information contained within the body of this dictation should be directly addressed to the provider for clarification. (2) COPD exacerbation: (3) Acute respiratory failure with hypoxia: (4) Current smoker: Admission and Anticipated Discharge Date Admission Date: November 24, 2020 Subjective Patient seen and examined at bedside. No acute distress, no adverse events overnight. Patient's states he feels okay. Breathing is improved a little bit. Does cough and bring up clear phlegm. No hemoptysis. Denies any chest pain. No nausea or vomiting. Fair appetite. Review of Systems Review of Systems: All systems reviewed & are unremarkable except as noted in Subjective Physical Exam Physical Exam: Constitutional: No acute distress, frail-appearing HEENT: EOMI, PERRLA Respiratory system: Decreased air entry bilaterally, no rhonchi, no crackles, no wheezing CVS: S1-S2 positive, no murmurs or gallops, distant heart sounds Abdomen: Soft, nontender, nondistended, positive bowel sounds x4 Extremities: +2 pulses bilaterally radialis/ dorsalis pedis, no cyanosis, no edema Neuro: Awake alert oriented x3 Psych: Normal mood and affect G/U: No Haines Skin: no rashes, warm and dry Lymphatic: no cervical or axillary lymphadenopathy Results & Data Results & Data ([facility]) Vital Signs (Past 12 Hours) Vital Signs Temp Pulse Pulse Resp BP Pulse Ox 11/26/20 11:09 36.3 C L 85 20 115/68 96 11/26/20 07:36 36.6 C 74 16 95/55 L 90 11/26/20 07:23 70 11/26/20 07:15 91 H 18 87 L 11/26/20 03:45 36.3 C L 83 18 109/69 95 11/26/20 03:08 93 H 20 96 11/26/20 08:12 11/26/20 08:12 PG Care Time/CCT Total # of Minutes Spent Total Time Spent with Patient: Total time spent is greater than 50% in coordination of care (as documented) at patient's floor/unit and/or counseling patient: Coding Level of Care Code 25016 Subseq Hosp Care Lvl 3 Diagnoses COPD (chronic obstructive pulmonary disease) with emphysema J43.9 COPD exacerbation J44.1 Acute respiratory failure with hypoxia J96.01 Current smoker F17.200
--- NOTE | 2020-11-26 13:06 | Hospitalist Progress Note ---
Date of Service November 26, 2020 Assessment & Plan (1) COPD exacerbation: Severe, end-stage COPD with cachexia. 2. Continue supplemental O2 to maintain SpO2 = or > 94% 4. Continue DuoNeb nebulizers q.4 hours around the clock. 5. Continue Spiriva and Albuterol. 7. IV Azithromycin 500 mg given in the ER, will continue a IV Azithromycin 250 mg daily. 8. Strongly encourage smoking cessation. - Pulm consult given he does not have an outpatient linotypist -> discussed today. Added triple-therapy inhaler and can give coupon on discharge. Stop ceftriaxone. Returned to IV steroids per pulm. (2) COPD (chronic obstructive pulmonary disease) with emphysema: -- Manage as outlined above. (3) HTN (hypertension): Patient's blood pressure was initially elevated, however it has come down and is reasonably well controlled. BP 130/75 today. -- Continue Chlorthalidone 25 mg daily. -- Monitor daily BMP. (4) Hypercholesterolemia: - Continue atorvastatin (5) DVT prophylaxis: Heparin 5,000 units SQ Q12h Admission and Anticipated Discharge Date Admission Date: November 24, 2020 Subjective Doing some better today. Less wheezing. Was able to walk up and down the alvarez which he reports went well. Reports no fevers/chills, chest pain, abdominal pain, nausea, or vomiting. Physical Exam Constitutional: WD/WN, vitals as above Eyes: EOM intact bilaterally; no conjunctival abnormality ENMT: external ear and nose normal, oropharynx normal Neck: trachea midline, no thyromegaly normal visual inspection Respiratory: + prolonged expiratory phase; no respiratory distress Auscultation: no wheezes (Diffuse, end expiratory) Cardiovascular: RRR, no murmur, no edema Gastrointestinal (Abdomen): Inspection/Auscultation: abdomen normal to inspection; abdomen not distended Musculoskeletal: no cyanosis or clubbing, extremities motor strength 5/5 Skin: no rashes, warm and dry Neurologic: moves all extremities and awake Psychiatric: Orientation: alert, oriented to person and cooperative Results & Data Results & Data ([facility]) Vital Signs (Past 12 Hours) Vital Signs Temp Pulse Pulse Resp BP Pulse Ox Pulse Ox 11/26/20 11:21 91 11/26/20 11:15 94 H 20 92 11/26/20 11:09 36.3 C L 85 20 115/68 96 11/26/20 07:36 36.6 C 74 16 95/55 L 90 11/26/20 07:23 70 11/26/20 07:15 91 H 18 87 L 11/26/20 03:45 36.3 C L 83 18 109/69 95 11/26/20 03:08 93 H 20 96 PG Care Time/CCT Total # of Minutes Spent Total Time Spent with Patient: Total time spent is greater than 50% in coordination of care (as documented) at patient's floor/unit and/or counseling patient: Coding Level of Care Code 91672 Subseq Hosp Care Lvl 2 Diagnoses COPD exacerbation J44.1 COPD (chronic obstructive pulmonary disease) with emphysema J43.9 HTN (hypertension) I10 Hypercholesterolemia E78.00 DVT prophylaxis Z29.9
[2020-11-27] MEDS: ALBUT/IPRATROP 3MG/0.5MG NEB 3 ML VIAL NEB SCH ×6 (03:43→22:19)
[2020-11-27 06:22] LABS: Hematocrit (blood only) 35.8 % (42-52); Hemoglobin 12.2 g/dL (14.0-18.0); Mean Corpuscular Hemoglobin 30.5 pg (25-34); Mean Corpuscular Hgb Conc 34.1 g/dL (32-36); Mean Corpuscular Volume 89.5 fL (80-100); Platelet Count 286 K/uL (130-400); RDW Standard Deviation 42.8 fL (36.4-46.3); White Blood Count 10.47 K/uL (4.8-10.8)
[2020-11-27 07:00] LABS: BUN Creatinine Ratio 34.5 (10-20); Calcium 9.4 mg/dl (8.5-10.1); Est GFR (African American) 108.1 ml/min; Est GFR (Non-African American) 93.2 ml/min
[2020-11-27] MEDS: methylPREDNISolone 40 MG in SYRINGE 0 ML IV SCH (08:42)
[2020-11-27] MEDS: FLUTICASONE/VILANTEROL 100/25MCG 14 PUFFS/INHALER INH SCH (08:42)
[2020-11-27] MEDS: UMECLIDINIUM BROMIDE 62.5MCG/BLISTER 7 PUFFS/INHALER INH SCH (08:42)
[2020-11-27] MEDS: HEPARIN SOD 5,000 UNIT/0.5 ML VIAL SQ SCH ×2 (08:43→20:23)
[2020-11-27] MEDS: ATORVASTATIN 40 MG TAB PO SCH (08:43)
[2020-11-27] MEDS: CHLORTHALIDONE 25 MG TAB PO SCH (08:43)
[2020-11-27] MEDS: AZITHROMYCIN 250 MG TAB PO SCH (08:43)
[2020-11-27] MEDS: guaiFENesin 600 MG TABCR PO SCH ×2 (08:43→20:22)
--- NOTE | 2020-11-27 11:24 | Hospitalist Progress Note ---
Date of Service November 27, 2020 Assessment & Plan (1) COPD exacerbation: Severe, end-stage COPD with cachexia. 2. Continue supplemental O2 to maintain SpO2 = or > 94% 4. Continue DuoNeb nebulizers q.4 hours around the clock. 5. Continue Spiriva and Albuterol. 7. IV Azithromycin 500 mg given in the ER, will continue a IV Azithromycin 250 mg daily. 8. Strongly encourage smoking cessation. - Pulm consult given he does not have an outpatient engine tester -> discussed today. Added triple-therapy inhaler and can give coupon on discharge. Stop ceftriaxone. Returned to IV steroids per pulm. Will move to daily IV steroids per pulm and switch to oral on Sunday. (2) COPD (chronic obstructive pulmonary disease) with emphysema: -- Manage as outlined above. (3) HTN (hypertension): Patient's blood pressure was initially elevated, however it has come down and is reasonably well controlled. BP 130/75 today. -- Continue chlorthalidone 25 mg daily. -- Monitor daily BMP. -> Stable (4) Hypercholesterolemia: - Continue atorvastatin (5) DVT prophylaxis: Heparin 5,000 units SQ Q12h Admission and Anticipated Discharge Date Admission Date: November 24, 2020 Subjective Doing better today. Less wheezing. Feels less shortness of breath with walking. Reports no fevers/chills, chest pain, abdominal pain, nausea, or vomiting. Physical Exam Constitutional: WD/WN, vitals as above Eyes: EOM intact bilaterally; no conjunctival abnormality ENMT: external ear and nose normal, oropharynx normal Neck: trachea midline, no thyromegaly normal visual inspection Respiratory: + prolonged expiratory phase; no respiratory distress Auscultation: no wheezes Cardiovascular: RRR, no murmur, no edema Gastrointestinal (Abdomen): Inspection/Auscultation: abdomen normal to inspection; abdomen not distended Musculoskeletal: no cyanosis or clubbing, extremities motor strength 5/5 Skin: no rashes, warm and dry Neurologic: moves all extremities and awake Psychiatric: Orientation: alert, oriented to person and cooperative Results & Data Results & Data ([facility]) Vital Signs (Past 12 Hours) Vital Signs Temp Pulse Pulse Resp BP Pulse Ox 11/27/20 11:13 59 L 18 92 11/27/20 10:12 70 11/27/20 08:00 36.6 C 99 H 18 114/60 95 11/27/20 07:39 81 16 97 11/27/20 03:05 36.7 C 79 14 118/64 94 11/27/20 00:13 84 PG Care Time/CCT Total # of Minutes Spent Total Time Spent with Patient: Total time spent is greater than 50% in coordination of care (as documented) at patient's floor/unit and/or counseling patient: Coding Level of Care Code 46614 Subseq Hosp Care Lvl 2 Diagnoses COPD exacerbation J44.1 COPD (chronic obstructive pulmonary disease) with emphysema J43.9 HTN (hypertension) I10 Hypercholesterolemia E78.00 DVT prophylaxis Z29.9
--- NOTE | 2020-11-27 11:38 | Pulmonology Progress Note ---
Date of Service November 27, 2020 Assessment & Plan (1) COPD (chronic obstructive pulmonary disease) with emphysema: CT chest 11/24/2020 personally reviewed: Severe centrilobular and seems to be p anlobular emphysema in the lower lobes. Inferior lingular infiltrate versus mucous plugging No mediastinal lymphadenopathy --Acute hypoxic respiratory failure Likely secondary to COPD exacerbation COVID-19 PCR negative 11/21/2020 Continue with prednisone Continue with antibiotic with atypical coverage with azithromycin O2 supplementation to keep oxygen saturation between 88-92% --Severe COPD with emphysema Patient is only on Spiriva at home Recommend starting the patient on Trelegy inhaler. For addition of Symbicort versus Breo to Spiriva before discharge Patient will benefit from PFTs as well as pulmonary follow-up as an outpatient Given the severity of emphysema and will order alpha-1 level Addition of azithromycin thrice a week or daily Roflumilast can be thought of as an outpatient Patient will definitely benefit from pulmonary rehab as well. --Active smoker Importance of quitting explained to the patient Plan: I will change Solu-Medrol to 40 mg once a day. On discharge or on Sunday if the patient is still here he can be changed to prednisone 40 mg for 3 days followed by 20 mg for 2 days and then stop. Continue with guaifenesin with flutter valve. On discharge recommend Trelegy inhaler along with as needed albuterol and DuoNeb's. Recommend outpatient PFTs and pulmonary follow-up No further recommendation from pulmonary perspective. Please call directly with any questions Case discussed with Dr. Pelletier. Please note the above document was generated using voice recognition software. It may contain grammatical, syntax or spelling errors.Any formal questions or concerns about the content, text or information contained within the body of this dictation should be directly addressed to the provider for clarification. (2) COPD exacerbation: (3) Acute respiratory failure with hypoxia: (4) Current smoker: Admission and Anticipated Discharge Date Admission Date: November 24, 2020 Subjective Patient seen and examined at bedside. No acute distress, no adverse events overnight. Patient said he is feeling better compared to the last couple of days. He is coughing up and bringing up clear phlegm. Denies any hemoptysis. No chest pain, no headache, no nausea, no vomiting. Fair appetite. Review of Systems Review of Systems: All systems reviewed & are unremarkable except as noted in Subjective Physical Exam Physical Exam: Constitutional: No acute distress, frail-appearing HEENT: EOMI, PERRLA Respiratory system: Decreased air entry bilaterally, no rhonchi, no crackles, no wheezing CVS: S1-S2 positive, no murmurs or gallops, distant heart sounds Abdomen: Soft, nontender, nondistended, positive bowel sounds x4 Extremities: +2 pulses bilaterally radialis/ dorsalis pedis, no cyanosis, no edema Neuro: Awake alert oriented x3 Psych: Normal mood and affect G/U: No Haines Skin: no rashes, warm and dry Lymphatic: no cervical or axillary lymphadenopathy Results & Data Results & Data ([facility]) Vital Signs (Past 12 Hours) Vital Signs Temp Pulse Pulse Resp BP BP Pulse Ox 11/27/20 11:29 36.4 C L 63 16 134/72 92 11/27/20 11:13 59 L 18 92 11/27/20 10:12 70 11/27/20 08:00 36.6 C 99 H 18 114/60 95 11/27/20 07:39 81 16 97 11/27/20 03:05 36.7 C 79 14 118/64 94 11/27/20 00:13 84 11/27/20 05:31 11/27/20 05:31 PG Care Time/CCT Total # of Minutes Spent Total Time Spent with Patient: Total time spent is greater than 50% in coordination of care (as documented) at patient's floor/unit and/or counseling patient: Coding Level of Care Code 70603 Subseq Hosp Care Lvl 3 Diagnoses COPD (chronic obstructive pulmonary disease) with emphysema J43.9 COPD exacerbation J44.1 Acute respiratory failure with hypoxia J96.01 Current smoker F17.200
[2020-11-28] MEDS: ALBUT/IPRATROP 3MG/0.5MG NEB 3 ML VIAL NEB SCH ×4 (03:22→19:12)
[2020-11-28] MEDS ORDERED: methylPREDNISolone 40 MG in SYRINGE 0 ML IV SCH (09:00)
[2020-11-28] MEDS: FLUTICASONE/VILANTEROL 100/25MCG 14 PUFFS/INHALER INH SCH (09:31)
[2020-11-28] MEDS: guaiFENesin 600 MG TABCR PO SCH ×2 (09:32→20:40)
[2020-11-28] MEDS: HEPARIN SOD 5,000 UNIT/0.5 ML VIAL SQ SCH ×2 (09:32→20:41)
[2020-11-28] MEDS: ATORVASTATIN 40 MG TAB PO SCH (09:33)
[2020-11-28] MEDS: CHLORTHALIDONE 25 MG TAB PO SCH (09:36)
[2020-11-28] MEDS: AZITHROMYCIN 250 MG TAB PO SCH (09:36)
[2020-11-28] MEDS: UMECLIDINIUM BROMIDE 62.5MCG/BLISTER 7 PUFFS/INHALER INH SCH (09:37)
[2020-11-28 09:54] LABS: Hematocrit (blood only) 39.1 % (42-52); Hemoglobin 13.3 g/dL (14.0-18.0); Mean Corpuscular Hemoglobin 30.6 pg (25-34); Mean Corpuscular Volume 89.9 fL (80-100); Mean Platelet Volume 9.9 fL (7.4-10.4); Platelet Count 280 K/uL (130-400); RDW Standard Deviation 42.8 fL (36.4-46.3); Red Blood Count 4.35 M/uL (4.7-6.1); White Blood Count 12.46 K/uL (4.8-10.8)
[2020-11-28 10:14] LABS: BUN Creatinine Ratio 26.4 (10-20); Creatinine Clr Calc Pharmacy 56.8 ml/min; Est GFR (African American) 103.8 ml/min; Est GFR (Non-African American) 89.5 ml/min; Potassium 3.7 mmol/L (3.5-5.1)
--- NOTE | 2020-11-28 10:44 | Hospitalist Progress Note ---
Date of Service November 28, 2020 Assessment & Plan (1) COPD exacerbation: Severe, end-stage COPD with cachexia. 2. Continue supplemental O2 to maintain SpO2 = or > 94% 4. Continue DuoNeb nebulizers q.4 hours around the clock. 5. Continue Spiriva and Albuterol. 7. IV Azithromycin 500 mg given in the ER, will continue a IV Azithromycin 250 mg daily. 8. Strongly encourage smoking cessation. - Pulm consulted given he does not have an outpatient roll weigher -> Added triple-therapy inhaler and can give coupon on discharge. Will switch to oral steroids tomorrow. -> Patient interested in possible rehab on discharge, but did too well with PT/OT. Consider home services when ready for discharge. (2) COPD (chronic obstructive pulmonary disease) with emphysema: -- Manage as outlined above. (3) HTN (hypertension): Patient's blood pressure was initially elevated, however it has come down and is reasonably well controlled. BP 120/75 today. -- Continue chlorthalidone 25 mg daily. -- Monitor daily BMP. -> Stable (4) Hypercholesterolemia: - Continue atorvastatin (5) DVT prophylaxis: Heparin 5,000 units SQ Q12h Admission and Anticipated Discharge Date Admission Date: November 24, 2020 Subjective Doing better today. Less wheezing. Less effort to exhale compared to yesterday. Reports no fevers/chills, chest pain, abdominal pain, nausea, or vomiting. Physical Exam Constitutional: WD/WN, vitals as above Eyes: EOM intact bilaterally; no conjunctival abnormality ENMT: external ear and nose normal, oropharynx normal Neck: trachea midline, no thyromegaly normal visual inspection Respiratory: + prolonged expiratory phase; no respiratory distress Auscultation: no wheezes Cardiovascular: RRR, no murmur, no edema Gastrointestinal (Abdomen): Inspection/Auscultation: abdomen normal to inspection; abdomen not distended Musculoskeletal: no cyanosis or clubbing, extremities motor strength 5/5 Skin: no rashes, warm and dry Neurologic: moves all extremities and awake Psychiatric: Orientation: alert, oriented to person and cooperative Results & Data Results & Data ([facility]) Vital Signs (Past 12 Hours) Vital Signs Temp Pulse Pulse Resp BP Pulse Ox 11/28/20 08:00 93 H 11/28/20 07:51 36.8 C 78 18 117/74 92 11/28/20 07:33 72 16 91 11/28/20 03:09 37.1 C 75 18 119/59 L 96 11/28/20 00:00 93 H 11/27/20 23:04 36.9 C 92 H 22 129/69 91 PG Care Time/CCT Total # of Minutes Spent Total Time Spent with Patient: Total time spent is greater than 50% in coordination of care (as documented) at patient's floor/unit and/or counseling patient: Coding Level of Care Code 68978 Subseq Hosp Care Lvl 2 Diagnoses COPD exacerbation J44.1 COPD (chronic obstructive pulmonary disease) with emphysema J43.9 Emphysema type: unspecified HTN (hypertension) I10 Hypercholesterolemia E78.00 DVT prophylaxis Z29.9 (1) COPD (chronic obstructive pulmonary disease) with emphysema Emphysema type: unspecified Qualified Code(s): J43.9 - Emphysema, unspecified
[2020-11-29] MEDS: ALBUT/IPRATROP 3MG/0.5MG NEB 3 ML VIAL NEB SCH ×4 (00:20→19:28)
[2020-11-29] MEDS: FLUTICASONE/VILANTEROL 100/25MCG 14 PUFFS/INHALER INH SCH (08:50)
[2020-11-29] MEDS: UMECLIDINIUM BROMIDE 62.5MCG/BLISTER 7 PUFFS/INHALER INH SCH (08:51)
[2020-11-29] MEDS: CHLORTHALIDONE 25 MG TAB PO SCH (08:51)
[2020-11-29] MEDS: guaiFENesin 600 MG TABCR PO SCH ×2 (08:51→20:31)
[2020-11-29] MEDS: predniSONE 20 MG TAB PO SCH (08:52)
[2020-11-29] MEDS: HEPARIN SOD 5,000 UNIT/0.5 ML VIAL SQ SCH ×2 (09:10→20:31)
[2020-11-29] MEDS: ATORVASTATIN 40 MG TAB PO SCH (09:53)
--- NOTE | 2020-11-29 21:48 | Hospitalist Progress Note ---
Date of Service November 29, 2020 Assessment & Plan (1) COPD exacerbation: Severe, end-stage COPD with cachexia. 2. Continue supplemental O2 to maintain SpO2 = or > 94% 4. Continue DuoNeb nebulizers q.4 hours around the clock. 5. Continue Spiriva and Albuterol. 7. IV Azithromycin 500 mg given in the ER, will continue a IV Azithromycin 250 mg daily. 8. Strongly encourage smoking cessation. 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 Will switch to oral steroids tomorrow. -> Patient interested in possible rehab on discharge, but did too well with PT/OT. Consider home services when ready for discharge. Patient continues to require oxygen and reports feeling to weak to go home. Concern over going up 3 flights of stairs to reach his home. will obtain 2 step tomorrow. (2) COPD (chronic obstructive pulmonary disease) with emphysema: -- Manage as outlined above. (3) HTN (hypertension): Patient's blood pressure was initially elevated, however it has come down and is reasonably well controlled. BP 120/75 today. -- Continue chlorthalidone 25 mg daily. -- Monitor daily BMP. -> Stable (4) Hypercholesterolemia: - Continue atorvastatin (5) DVT prophylaxis: Heparin 5,000 units SQ Q12h Admission and Anticipated Discharge Date Admission Date: November 24, 2020 Subjective Patient reports still feeling fatigued. He has no new complaints. Review of Systems Review of Systems: All systems reviewed & are unremarkable except as noted in HPI & below Physical Exam Physical Exam: Constitutional: WD/WN, vitals as above Eyes: EOM intact bilaterally; no conjunctival abnormality ENMT: external ear and nose normal, oropharynx normal Neck: trachea midline, no thyromegaly normal visual inspection Respiratory: + prolonged expiratory phase; no respiratory distress Auscultation: no wheezes Cardiovascular: RRR, no murmur, no edema Gastrointestinal (Abdomen): Inspection/Auscultation: abdomen normal to inspection; abdomen not distended Musculoskeletal: no cyanosis or clubbing, extremities motor strength 5/5 Skin: no rashes, warm and dry Neurologic: moves all extremities and awake Psychiatric: Orientation: alert, oriented to person and cooperative Results & Data Results & Data ([facility]) Vital Signs (Past 12 Hours) Vital Signs Temp Pulse Pulse Resp BP BP Pulse Ox 11/29/20 19:50 36.4 C L 103 H 20 130/80 94 11/29/20 19:28 103 H 20 94 11/29/20 15:50 36.4 C L 85 16 114/76 96 11/29/20 13:32 96 H 18 95 11/29/20 12:00 76 11/29/20 11:11 36.6 C 81 17 114/76 93 PG Care Time/CCT Total # of Minutes Spent Total Time Spent with Patient: Total time spent is greater than 50% in coordination of care (as documented) at patient's floor/unit and/or counseling patient: Coding Level of Care Code 04046 Subseq Hosp Care Lvl 2 Diagnoses COPD exacerbation J44.1 COPD (chronic obstructive pulmonary disease) with emphysema J43.9 Emphysema type: unspecified HTN (hypertension) I10 Hypercholesterolemia E78.00 DVT prophylaxis Z29.9 Time Spent (min) 25 (1) COPD (chronic obstructive pulmonary disease) with emphysema Emphysema type: unspecified Qualified Code(s): J43.9 - Emphysema, unspecified
[2020-11-30] MEDS: ALBUT/IPRATROP 3MG/0.5MG NEB 3 ML VIAL NEB SCH ×4 (00:14→19:31)
[2020-11-30] MEDS: ALUMINUM/MAGNESIUM SUSP 30 ML UDC PO PRN (00:28)
[2020-11-30] MEDS: CALCIUM CARBONATE 500 MG CHEWABLE TAB PO PRN ×2 (01:39→21:22)
[2020-11-30] MEDS: UMECLIDINIUM BROMIDE 62.5MCG/BLISTER 7 PUFFS/INHALER INH SCH (07:48)
[2020-11-30] MEDS: FLUTICASONE/VILANTEROL 100/25MCG 14 PUFFS/INHALER INH SCH (07:48)
[2020-11-30] MEDS: guaiFENesin 600 MG TABCR PO SCH ×2 (07:49→20:18)
[2020-11-30] MEDS: ATORVASTATIN 40 MG TAB PO SCH (07:49)
[2020-11-30] MEDS: predniSONE 20 MG TAB PO SCH (07:50)
[2020-11-30] MEDS: CHLORTHALIDONE 25 MG TAB PO SCH (07:51)
[2020-11-30] MEDS: HEPARIN SOD 5,000 UNIT/0.5 ML VIAL SQ SCH ×2 (07:51→20:18)
--- NOTE | 2020-11-30 22:02 | Hospitalist Progress Note ---
Date of Service November 30, 2020 Assessment & Plan (1) COPD exacerbation: Severe, end-stage COPD with cachexia. 2. Continue supplemental O2 to maintain SpO2 = or > 94% 4. Continue DuoNeb nebulizers q.4 hours around the clock. 5. Continue Spiriva and Albuterol. 7. IV Azithromycin 500 mg given in the ER, will continue a IV Azithromycin 250 mg daily. 8. Strongly encourage smoking cessation. 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 Will switch to oral steroids tomorrow. -> Patient interested in possible rehab on discharge, but did too well with PT/OT. Now on room air. Patient though failed physical therapy and require rehab as he will need to climb up 2 flights of stairs. Will hold discharge until placed. (2) COPD (chronic obstructive pulmonary disease) with emphysema: -- Manage as outlined above. (3) HTN (hypertension): Patient's blood pressure was initially elevated, however it has come down and is reasonably well controlled. BP 120/75 today. -- Continue chlorthalidone 25 mg daily. -- Monitor daily BMP. -> Stable (4) Hypercholesterolemia: - Continue atorvastatin (5) DVT prophylaxis: Heparin 5,000 units SQ Q12h Admission and Anticipated Discharge Date Admission Date: November 24, 2020 Subjective Patient reports no new symptoms today. Feeling better today in regards to his breathing. Review of Systems Review of Systems: All systems reviewed & are unremarkable except as noted in HPI & below Physical Exam Physical Exam: Constitutional: WD/WN, vitals as above Eyes: EOM intact bilaterally; no conjunctival abnormality ENMT: external ear and nose normal, oropharynx normal Neck: trachea midline, no thyromegaly normal visual inspection Respiratory: + prolonged expiratory phase; no respiratory distress Auscultation: no wheezes Cardiovascular: RRR, no murmur, no edema Gastrointestinal (Abdomen): Inspection/Auscultation: abdomen normal to inspection; abdomen not distended Musculoskeletal: no cyanosis or clubbing, extremities motor strength 5/5 Skin: no rashes, warm and dry Neurologic: moves all extremities and awake Psychiatric: Orientation: alert, oriented to person and cooperative Results & Data Results & Data ([facility]) Vital Signs (Past 12 Hours) Vital Signs Temp Pulse Resp BP BP Pulse Ox 11/30/20 19:57 36.6 C 99 H 18 113/63 91 11/30/20 19:31 18 11/30/20 15:23 36.5 C 94 H 16 121/76 95 11/30/20 12:42 83 18 95 11/30/20 11:34 36.5 C 81 16 112/78 96 PG Care Time/CCT Total # of Minutes Spent Total Time Spent with Patient: Total time spent is greater than 50% in coordination of care (as documented) at patient's floor/unit and/or counseling patient: Coding Level of Care Code 83105 Subseq Hosp Care Lvl 2 Diagnoses COPD exacerbation J44.1 COPD (chronic obstructive pulmonary disease) with emphysema J43.9 Emphysema type: unspecified HTN (hypertension) I10 Hypercholesterolemia E78.00 DVT prophylaxis Z29.9 Time Spent (min) 25 (1) COPD (chronic obstructive pulmonary disease) with emphysema Emphysema type: unspecified Qualified Code(s): J43.9 - Emphysema, unspecified
[2020-12-01] MEDS: ALBUT/IPRATROP 3MG/0.5MG NEB 3 ML VIAL NEB SCH ×3 (00:02→12:42)
[2020-12-01] MEDS: HEPARIN SOD 5,000 UNIT/0.5 ML VIAL SQ SCH (07:52)
[2020-12-01] MEDS: predniSONE 20 MG TAB PO SCH (07:52)
[2020-12-01] MEDS: ATORVASTATIN 40 MG TAB PO SCH (07:52)
[2020-12-01] MEDS: guaiFENesin 600 MG TABCR PO SCH (07:52)
[2020-12-01] MEDS: CHLORTHALIDONE 25 MG TAB PO SCH (07:52)
[2020-12-01] MEDS: UMECLIDINIUM BROMIDE 62.5MCG/BLISTER 7 PUFFS/INHALER INH SCH (07:53)
[2020-12-01] MEDS: FLUTICASONE/VILANTEROL 100/25MCG 14 PUFFS/INHALER INH SCH (07:53)
--- NOTE | 2020-12-03 12:04 | Discharge Summary ---
Date of Service December 01, 2020 Admission HPI Per Admitting Provider Mr. Black is a 70 year old male with a history of Hypertension, Hypercholesterolemia, and COPD/Emphysema who presents acutely to [facility] ER this morning complaining of increased shortness of breath, dyspnea on exertion, wheezing, and a nonproductive cough which began about 3-4 days ago, and each day it has gotten worse. Patient has been using his inhalers, but they are not providing any relief. Patient offers no other complaints. He denies any fevers, chills, chest pain, chest heaviness, pleuritic chest pain, or any hemoptysis. He has not had any sputum production. Patient denies any headache, stiff neck, myalgias, arthralgias, or malaise. He has not had exposure to any sick contacts. He denies any recent COVID exposures. Patient has never been hospitalized for COPD in the past, but he was hospitali zed for pneumonia in the past. Patient does not use or require supplemental oxygen at home. Patient denies any prior cardiac history. He specifically denies any history CAD, MA, CHF, rheumatic fever, or cardiac arrhythmias. He denies any history of stroke or mini stroke. He denies any intermittent claudication. Principal Diagnosis COPD exacerbation Discharge Exam Constitutional: WD/WN, vitals as above Eyes: EOM intact bilaterally; no conjunctival abnormality ENMT: external ear and nose normal, oropharynx normal Neck: trachea midline, no thyromegaly normal visual inspection Respiratory: no respiratory distress Auscultation: no wheezes Cardiovascular: RRR, no murmur, no edema Gastrointestinal (Abdomen): Inspection/Auscultation: abdomen normal to inspection; abdomen not distended Musculoskeletal: no cyanosis or clubbing, extremities motor strength 5/5 Skin: no rashes, warm and dry Neurologic: moves all extremities and awake Psychiatric: Orientation: alert, oriented to person and cooperative Discharge Data Allergies Allergy/AdvReac Type Severity Reaction Status Date / Time No Known Allergies Allergy Unverified 11/24/20 07:42 Consultations 11/24/20 08:29 ED Decision to Admit Stat 11/24/20 15:49 Consult Pulmonology Routine Ordered Studies 11/24/20 15:47 CT chest diagnostic wo con Routine Hospital Course (1) COPD exacerbation: Severe, end-stage COPD with cachexia. 2. Continue supplemental O2 to maintain SpO2 = or > 94% 4. Continue DuoNeb nebulizers q.4 hours around the clock. 5. Continue Spiriva and Albuterol. 7. IV Azithromycin 500 mg given in the ER, will continue a IV Azithromycin 250 mg daily. 8. Strongly encourage smoking cessation. - Pulm consulted given he does not have an outpatient white sugar pan tank operator -> Added triple-therapy inhaler and can give coupon on discharge. Will switch to oral steroids tomorrow. -> Patient interested in possible rehab on discharge, but did too well with PT/OT. Now on room air. Patient though failed physical therapy and require rehab as he will need to climb up 2 flights of stairs. Will discharge to rehab. (2) COPD (chronic obstructive pulmonary disease) with emphysema: -- Manage as outlined above. (3) HTN (hypertension): Patient's blood pressure was initially elevated, however it has come down and is reasonably well controlled. BP 120/75 today. -- Continue chlorthalidone 25 mg daily. -- Monitor daily BMP. -> Stable (4) Hypercholesterolemia: - Continue atorvastatin (5) DVT prophylaxis: Heparin 5,000 units SQ Q12h Total Time Total Time Spent Total Time Spent (In Minutes): 32 Total Time Includes: Examination of the Patient, Discharge Planning and Medication Reconciliation Discharge Plan Discharge Items Patient Disposition: Transfer Inpatient Rehab Fac Reason For Visit: COPD EXACERBATION,PNEUMONIA Discharge Diagnosis: COPD exacerbation Activity: Resume your previous activity Non-emergency contact: Primary Care Provider Call non-emergency contact if: you have any medication questions Follow-up/Referrals: Jm Soares [Primary Care Provider] - Diet: Regular Addtl Attending Provider Instructions: Discharge with [facility]. Will need to follow up with Urology for voiding trial IN 7-10 DAYS WILL BE DISCHARGED ON [place]. Coupon given to patient with discharge paperwork. Recommend outpatient PFTs and pulmonary follow-up. Pending Studies at Discharge: No Stand-Alone Forms: [facility] Skilled Items Patient informed of condition?: Yes DNR: No Discharge Level of Care: Acute rehab Communicable Disease: No Discharge Prognosis: Stable Lines: None Urinary Catheter: No Medications and DC Order Prescriptions: New guaifenesin [Mucinex] 600 mg Tablet Extended Release 12hr 600 mg PO Q12 Qty: 30 RF: 0 prednisone 10 mg tablet 10 mg PO DAILY Qty: 12 RF: 0 Trelegy Ellipta 200-62.5-25 mcg blister with device 1 inh inhalation DAILY Qty: 28 RF: 0 azithromycin 250 mg tablet 250 mg PO .MWF Qty: 18 RF: 0 Continued atorvastatin 40 mg tablet 40 mg PO QAM RF: 0 chlorthalidone 25 mg tablet 25 mg PO QAM RF: 0 albuterol sulfate 90 mcg/actuation HFA aerosol inhaler 2 puff INHALATION Q4H PRN (Reason: Shortness Of Breath Or Wheezing) RF: 0 Discontinued Spiriva Respimat 2.5 mcg/actuation mist 1 inh INHALATION DAILY RF: 0 Discharge Orders: Discharge Order (Routine); Ordered 12/01/20 Ordered By: Colby Ga Admission Data Admit Date/Time: 11/24/20 10:05 Attending Provider: Colby Ga Admit Provider: David Pelletier Primary Care Provider: Jm Soares Other Providers: David Pelletier ; Usman Carrero ; [facility] Other Interventions: Discharge Summary Assessment (RN) Last Done: 12/01/20 15:51 Coding Level of Care Code D/C Day Management >30 mins Diagnoses COPD exacerbation J44.1 COPD (chronic obstructive pulmonary disease) with emphysema J43.9 Emphysema type: unspecified HTN (hypertension) I10 Hypercholesterolemia E78.00 DVT prophylaxis Z29.9
[2020-12-04 13:56] LABS: Alpha 1 Antitrypsin 285 mg/dL (83-199)
== END 2020-12-01 16:20 | DRG 190 ==
LOC: ED 07:07 → 2W 10:05 → SUATTDRO 10:05 → 2W 11:13